=== PATIENT | male | born 1955 | race Caucasian/White ===

== ENCOUNTER → 2017-10-29 | Outpatient (CLI) | payer OTHER ==
[~2017-10-29] MED LIST: FLUT0.0529 INTNAS
[2017-10-29 17:19] LABS: ALBUMIN 4.1 gm/dl (3.4-5.0); ALT/SGPT 60 U/L (12-78); BLOOD UREA NITROGEN 18 mg/dl (7-18); CALCIUM 9.3 mg/dl (8.5-10.1); CARBON DIOXIDE 28 mmol/L (21-32); CREATININE 0.86 mg/dl (0.60-1.40); GLUCOSE 90 mg/dl (70-99); LIPASE 144 U/L (73-393); POTASSIUM 3.5 mmol/L (3.5-5.1); SODIUM 136 mmol/L (136-145)
[2017-10-29 17:22] LABS: ALKALINE PHOSPHATASE 74 U/L (45-117); AST/SGOT 43 U/L (15-37); TOTAL PROTEIN 7.3 gm/dl (6.4-8.2)
[2017-10-29 17:35] LABS: BASO % 0.2 %; BASO ABS # 0.01 K/uL (0-0.2); EOS % 2.8 %; EOS ABS # 0.17 K/uL (0-0.5); HEMATOCRIT 42.9 % (42-52); HEMOGLOBIN 15.2 g/dL (14.0-18.0); IG# 0.03 K/uL (0.00-0.02); LYMPH % 25.9 %; LYMPH ABS # 1.58 K/uL (1.2-3.4); MEAN CORPUSCULAR HGB CONC 35.4 g/dl (32-36); MEAN PLATELET VOLUME 9.6 fL (7.4-10.4); MONO ABS # 0.49 K/uL (0.11-0.59); NEUT % 62.6 %; NEUT ABS # 3.81 K/uL (1.4-6.5); PLATELET COUNT 216 K/uL (130-400); RED CELL DISTRIBUTION WIDTH CV 12.4 % (11.5-14.5); WHITE BLOOD COUNT 6.09 K/uL (4.8-10.8)
[2017-10-29 18:04] LABS: HEP C IGG 13 YRS+OLDER_RFLX NEG (NEG)
[2017-10-31 07:16] LABS: HEPATITIS A IGM TC 51813E NON-REACTIVE (NON-REACTIVE); HEPATITIS B CORE IGM TC51854R NON-REACTIVE (NON-REACTIVE)
== END | disposition home or self-care (01) ==
LOC: C.LAB1850 15:39
PROVIDERS: ATTEND Nurse Practitioner Family
DX: R10.9 Unspecified abdominal pain (principal)

== ENCOUNTER → 2017-11-04 | Outpatient (CLI) | payer OTHER ==
--- NOTE | 2017-11-04 09:15 | DIAGNOSTIC IMAGING REPORT ---
BILIARY ULTRASOUND CLINICAL HISTORY: R10.9 Abdominal [id number] COMPARISON STUDY: September 25, 2015 FINDINGS: The pancreas appears sonographically normal. The gallbladder appears sonographically normal. There was no ductal dilatation. The common bile duct measures 3 mm. There is no right-sided hydronephrosis. No focal hepatic masses were visualized. There was mild increased hepatic echogenicity. IMPRESSION: 1. Ultrasonographically normal gallbladder and pancreas 2. No ductal dilatation 3. Increased hepatic echogenicity, likely secondary to hepatic steatosis Electronically signed by: Maynor Garcia M.D. 11/04/2017 9:14 AM Dictated Date/Time: 11/04/2017 9:13 AM
== END | disposition home or self-care (01) ==
LOC: C.ULTR 08:40
PROVIDERS: ATTEND Nurse Practitioner Family
DX: R10.9 Unspecified abdominal pain (principal)

== ENCOUNTER → 2017-11-19 | Outpatient (CLI) | payer OTHER ==
[~2017-11-19] MED LIST changes: +SINCALIDE INJ 1.7 MCG in SODIUM CHLORIDE 0.9% 100ML 100 ML IV ONE
--- NOTE | 2017-11-19 13:39 | DIAGNOSTIC IMAGING REPORT ---
HEPATOBILIARY EF IMAGING CLINICAL HISTORY: 62 years-old Male presenting with R10.9 Abdominal pain. TECHNIQUE: Dynamic imaging of the gallbladder was initiated 65 minutes after administration of 5.50 mCi of technetium 99m Choletec. Imaging was obtained every 5 minutes over a span of 40 minutes. 1.7 mcg of sincalide was injected 5 minutes prior to the start of imaging. The gallbladder ejection fraction was calculated. COMPARISON: Ultrasound from 11/04/2017. FINDINGS: Hepatobiliary scan demonstrates normal radiotracer uptake by the liver and normal excretion into the common duct and gallbladder. Expected radiotracer activity within small bowel indicates an unobstructed common duct. The gallbladder subsequently demonstrates normal contraction with decreased radiotracer activity. Gallbladder ejection fraction measures 97%. Reference range: Unequivocally normal: Greater than 50% Unequivocally abnormal: Less than 35% IMPRESSION: 1. Normal gallbladder ejection fraction. No evidence of chronic cholecystitis. Electronically signed by: Harley Mullen M.D. 11/19/2017 1:38 PM Dictated Date/Time: 11/19/2017 1:37 PM
== END | disposition home or self-care (01) ==
LOC: C.NUCL 10:29
PROVIDERS: ATTEND Nurse Practitioner Family
DX: R10.9 Unspecified abdominal pain (principal)

== ENCOUNTER → 2017-11-25 | Outpatient (CLI) | payer OTHER ==
[~2017-11-25] MED LIST changes: -SINCALIDE INJ 1.7 MCG in SODIUM CHLORIDE 0.9% 100ML 100 ML IV ONE
== END | disposition home or self-care (01) ==
LOC: C.LAB1850 08:35
PROVIDERS: ATTEND Nurse Practitioner Family
DX: R39.9 Unspecified symptoms and signs involving the genitourinary system (principal)

== ENCOUNTER 2024-06-03 23:24 | Inpatient (IN) ==
--- NOTE | 2024-06-03 23:52 | Emergency Department Note ---
Impression & Plan Imbalance, Alcohol intoxication, Alcohol dependence, Cervical spinal stenosis ED Provider Note NAME: AYDEE LEIGH AGE: 68 SEX: M : 1955 ARRIVES VIA: Walk-In INFORMANT: Patient ED PROVIDER(S): Rene Lee MD CHIEF COMPLAINT: Imbalance, confusion, double vision PLAN: Disposition: Admit MEDICAL DECISION MAKING: The patient is a pleasant 68-year-old gentleman with a past medical history of paroxysmal atrial fibrillation not on anticoagulation, hypertension, sensorial neural hearing loss, cervical spinal stenosis, chronic neck pain and balance, fatty liver, BPH with LUTS who presents to the emergency department via walk-in accompanied by his children for evaluation of imbalance, double vision which occurred tonight prior to arrival in the setting of having several months of decline with headache, imbalance and changes in mental status. They report that the patient was worse today and had a fall and they are walking the state and going up the ramp which is not normal for the patient. Reportedly tonight the patient was feeling worse and so drove over to their house and had reported having double vision and dizziness. Patient reports that this is resolved at this time. Patient does admit that he does drink alcohol daily and describes intake as 2 gin and tonics. He describes the glass as "tall". He reports that he has stopped drinking for a week or so in the past year but admits he started to feel shaky. He is scheduled to see neurosurgery in the next couple of weeks at [facility] for his cervical spine stenosis for cervical spine MRI imaging from 05/09/24 demonstrated moderate multilevel intervertebral disc space narrowing and facet arthrosis resulting in associated central canal and neuroforaminal stenosis. There is description of flattening of the ventral thecal sac at the level of C3-C4. Patient denies any new urinary retention or loss of bowel control. On evaluation the patient is fatigued, somnolent appearing. He has subtle dysarthric speech and past-pointing bilaterally with ataxia lower extremities. EKG without overt acute ischemia. CXR negative for acute cardiopulmonary process per my personal preliminary review/interpretation. WBC and Platelets wnl. H/H similar to prior. Chemistry without metabolic acidosis. AST and ALT 108 and 67, respectively, similar to prior. FTs otherwise normal. High-sensitivity troponin 0.9, within normal limits. Lipase normal. TSH is pending. Medical alcohol was 372 at 2340 in the setting of patient report his last drink was earlier today. CT of the head demonstrates age-related changes as well as description of a newly noted small hypodense focus in the right pontine Ose[place] portion which may reflect low-grade ischemia of small vessel disease. Additional note of tiny bilateral frontal periventricular hyperdense foci related to small vessel disease. CTA of the head and neck demonstrates mild-moderate carotid artery stenosis. Given the patient's CT findings the patient and family agree with plan for admission for further assessment. Additionally, they agree that patient does need to address his alcohol dependence. At this time the patient does not exhibit any signs or symptoms of withdrawal. Patient was treated IV fluid duration and IV thiamine. Case was discussed with Dr. Polanco, [facility] hospitalist, who will evaluate the patient for admission. Further management per admitting team. Triage Nursing notes reviewed and agree them. Prior/external medical records reviewed Vital Signs: reviewed Differential diagnosis: Benign positional vertigo, dehydration, hypovolemia, anemia, tumor, infection, hypoglycemia, electrolyte abnormalities, cardiac sources, intracerebral event, toxicologic, neurologic, as well as other pathologies. ER treatment provided: See below. Diagnostics interpreted by me: ECG: Normal sinus rhythm, 62 bpm, no ectopy, no overt ST ovation or depression, QTc 438 QTC 78. Cardiac Monitoring: An order for continuous cardiac monitoring was placed and demonstrated Normal sinus rhythm, 62 bpm, no ectopy, Laboratory studies: See below Imaging studies: See below Consultation(s): Case was discussed with Dr. Polanco, [facility] hospitalist, who will evaluate the patient for admission. HPI: The patient is a pleasant 68-year-old gentleman with a past medical history of paroxysmal atrial fibrillation not on anticoagulation, hypertension, sensorial neural hearing loss, cervical spinal stenosis, chronic neck pain and balance, fatty liver, BPH with LUTS who presents to the emergency department via walk-in accompanied by his children for evaluation of imbalance, double vision which occurred tonight prior to arrival in the setting of having several months of decline with headache, imbalance and changes in mental status. They report that the patient was worse today and had a fall and they are walking the state and going up the ramp which is not normal for the patient. Reportedly tonight the patient was feeling worse and so drove over to their house and had reported having double vision and dizziness. Patient reports that this is resolved at this time. Patient does admit that he does drink alcohol daily and describes intake as 2 gin and tonics. He describes the glass as "tall". He reports that he has stopped drinking for a week or so in the past year but admits he started to feel shaky. He is scheduled to see neurosurgery in the next couple of weeks at [facility] for his cervical spine stenosis for cervical spine MRI imaging from 05/09/24 demonstrated moderate multilevel intervertebral disc space narrowing and facet arthrosis resulting in associated central canal and neuroforaminal stenosis. There is description of flattening of the ventral thecal sac at the level of C3-C4. Patient denies any new urinary retention or loss of bowel control. ROS: See above HPI for pertinent positives & negatives. A total of 10 systems reviewed and were otherwise negative. VITALS:See Below PHYSICAL EXAMINATION: GENERAL: Awake, alert, somnolent-appearing, in no distress HENT: Normocephalic, atraumatic. Oropharynx with dry mucous membranes and otherwise unremarkable. EYES: Normal conjunctiva. Sclera non-icteric. Mild bilateral horizontal nystagmus. NECK: Supple. No nuchal rigidity. FROM. No JVD. RESPIRATORY: Clear to auscultation. CARDIAC: Regular rate, normal rhythm. Extremities warm and well perfused. Pulses equal. ABDOMEN: Soft, non-distended. No tenderness to palpation. No rebound or guarding. No masses. MUSCULOSKELETAL: Chest examination reveals no tenderness. The back is symmetrical on inspection without obvious abnormality. There is no CVA tenderness to palpation. No joint edema. LOWER EXTREMITIES: Calves are equal size bilaterally and non-tender. No edema. No discoloration. NEURO: Subtle dysarthric speech and past-pointing bilaterally with ataxia lower extremities. SKIN: No rash or jaundice noted. 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 (Chronic) Hematuria Dysphagia Chronic anticoagulation Paroxysmal atrial fibrillation Abnormal TSH Left asymmetrical SNHL SNHL (sensorineural hearing loss) Hypertension (Chronic) Decreased hearing Dysfunction of eustachian tube Elevated blood pressure reading without diagnosis of hypertension Fatty infiltration of liver Incomplete emptying of bladder Left asymmetrical SNHL Prostate hyperplasia with urinary obstruction Medical History BPH (benign prostatic hyperplasia) SNHL (sensorineural hearing loss) Seasonal allergies History of postoperative nausea and vomiting fentanyl caused nausea, no vomiting Hx of urethral stricture History of COVID-19 (09/2022) no hosp; resolved Dysphagia HTN (hypertension) Fatty liver Hx of gout Paroxysmal atrial fibrillation states was caused by gout medication, no issues since discontinuing that medication (2021) follows w/ Dr Robert Expressive aphasia Transient ischemic attack pt denies being aware of this Surgical History S/P placement of nerve stimulator bladder stimulator implanted and removed per pt Hx of colonoscopy Hx of cystoscopy (2022) multiple procedures for urethral stricture History of bladder surgery S/P TURP (03/2014) History of inguinal hernia repair (09/17/14) left Family History Unknown Diabetes Mother Hypertension Father Hypertension Other specified hearing loss, unspecified ear Sister Asthma Other No family history of adverse response to anesthesia No family history of bleeding disorder Denies family history of Ovarian cancer Prostate cancer Myocardial infarction Breast cancer Colorectal cancer Social History Smoking Status: Former smoker Tobacco Type: Cigarettes Age Started Using Tobacco: 17; Age Quit Using Tobacco: 34; packs per day: 1; Cigarettes Per Day: 3; Smoking End Date: 1989; Second Hand Exposure: No; Do You Dip or Chew Tobacco: No; Hx Alcohol Use: Yes Alcohol type: hard liquor Alcohol Intake Frequency: 4 or More x per/Week Alcohol Intake Frequency Comment: 1 or 2 gin and tonics daily Hx Substance Use: No Preferred Language: [place] Citizen Communication Ability: Effective Visual Impairment: No Limitations Hearing Ability: Use of Hearing Aid Production Manager Required: No Beliefs That Will Affect Care: None marital status: Current Living Situation: Alone Current Living Situation Comment: lives in [place] current occupational status: retired Other Information That Helps Us Care for You: No Feels Safe at Home: Yes Safety Concerns: Feels Safe At This Time Childhood Exposure to Second-Hand Smoke: Yes Diet: regular Dental Care, Regularly: Yes Physical Activity Frequency: Daily Seatbelt Use: always Sunscreen Use: Yes Assistive Devices: Glasses and Hearing Aid - Left Allergies Allergies Allergy/AdvReac Type Severity Reaction Status Date / Time Penicillins Allergy Unknown ANAPHYLACTIC Verified 05/18/24 08:43 RESPONSE Home Meds Home Medications Medication Instructions Recorded Confirmed biotin 1 mg tablet 1 mg PO DAILY 04/07/24 06/04/24 Previous Rx's Medication Instructions Recorded tamsulosin 0.4 mg capsule 0.4 mg PO DAILY #90 caps 03/23/22 sildenafil 100 mg tablet 100 mg PO DAILY PRN sexual 11/29/23 activity #8 tabs metoprolol succinate 50 mg See Rx Instructions .Route 04/14/24 tablet,extended release 24 hr .COMPLEX #90 tabs duloxetine 30 mg capsule,delayed 30 mg PO DAILY #90 caps 05/18/24 release (Cymbalta) Results & Data (ED) Vital Signs Vital Signs - 24 hr 06/03/24 23:28 06/03/24 23:35 06/03/24 23:36 Temperature 36.2 C L Temperature Source Temporal Artery Scan Pulse Rate 61 66 Pulse Rate [Apical] Pulse Rate from SpO2 Sensor Respiratory Rate 16 Respiratory Effort / Characteristics Non-Labored Spontaneous Respiratory Depth Normal Respiratory Pattern Regular Blood Pressure 105/71 97/64 L Blood Pressure [Right Arm] Blood Pressure Mean 82 75 Blood Pressure Mean [Right Arm] Blood Pressure Position Sitting Pulse Oximetry 97 Oxygen Delivery Method Room Air Sepsis Recent Fever Within 48 Hours No Sepsis New/Unexplained Change in Mental Status N/A Sepsis Action Taken by Nursing No Action Required 06/03/24 23:39 06/03/24 23:40 06/03/24 23:42 Temperature Temperature Source Pulse Rate 64 63 Pulse Rate [Apical] 62 Pulse Rate from SpO2 Sensor 64 Respiratory Rate 14 20 23 Respiratory Effort / Characteristics Non-Labored Spontaneous Respiratory Depth Normal Respiratory Pattern Regular Blood Pressure Blood Pressure [Right Arm] 97/64 L Blood Pressure Mean Blood Pressure Mean [Right Arm] 75 Blood Pressure Position Pulse Oximetry 99 98 Oxygen Delivery Method Room Air Sepsis Recent Fever Within 48 Hours Sepsis New/Unexplained Change in Mental Status Sepsis Action Taken by Nursing 06/03/24 23:57 06/04/24 00:00 06/04/24 00:09 Temperature Temperature Source Pulse Rate 65 64 Pulse Rate [Apical] Pulse Rate from SpO2 Sensor 64 Respiratory Rate 13 Respiratory Effort / Characteristics Respiratory Depth Respiratory Pattern Blood Pressure 110/64 Blood Pressure [Right Arm] Blood Pressure Mean 69 Blood Pressure Mean [Right Arm] Blood Pressure Position Pulse Oximetry 97 96 Oxygen Delivery Method Room Air Sepsis Recent Fever Within 48 Hours Sepsis New/Unexplained Change in Mental Status Sepsis Action Taken by Nursing 06/04/24 00:21 06/04/24 00:30 06/04/24 01:00 EST Temperature Temperature Source Pulse Rate 68 66 Pulse Rate [Apical] Pulse Rate from SpO2 Sensor 68 66 Respiratory Rate 20 17 Respiratory Effort / Characteristics Respiratory Depth Respiratory Pattern Blood Pressure 108/64 Blood Pressure [Right Arm] Blood Pressure Mean 80 Blood Pressure Mean [Right Arm] Blood Pressure Position Pulse Oximetry 97 95 Oxygen Delivery Method Sepsis Recent Fever Within 48 Hours Sepsis New/Unexplained Change in Mental Status Sepsis Action Taken by Nursing 06/04/24 01:00 EST 06/04/24 01:03 EST 06/04/24 01:12 EST Temperature Temperature Source Pulse Rate 68 62 Pulse Rate [Apical] Pulse Rate from SpO2 Sensor 72 62 Respiratory Rate 22 15 Respiratory Effort / Characteristics Respiratory Depth Respiratory Pattern Blood Pressure 108/64 Blood Pressure [Right Arm] Blood Pressure Mean 80 Blood Pressure Mean [Right Arm] Blood Pressure Position Pulse Oximetry 94 93 Oxygen Delivery Method Sepsis Recent Fever Within 48 Hours Sepsis New/Unexplained Change in Mental Status Sepsis Action Taken by Nursing 06/04/24 01:21 EST 06/04/24 01:23 EST 06/04/24 01:30 EST Temperature Temperature Source Pulse Rate 66 66 Pulse Rate [Apical] 61 Pulse Rate from SpO2 Sensor 66 Respiratory Rate 15 20 Respiratory Effort / Characteristics Non-Labored Spontaneous Respiratory Depth Normal Respiratory Pattern Regular Blood Pressure Blood Pressure [Right Arm] 119/74 Blood Pressure Mean Blood Pressure Mean [Right Arm] 89 Blood Pressure Position Pulse Oximetry 94 92 Oxygen Delivery Method Room Air Sepsis Recent Fever Within 48 Hours Sepsis New/Unexplained Change in Mental Status Sepsis Action Taken by Nursing 06/04/24 01:30 EST 06/04/24 02:00 06/04/24 02:15 Temperature Temperature Source Pulse Rate 61 66 Pulse Rate [Apical] Pulse Rate from SpO2 Sensor 61 67 Respiratory Rate 16 14 Respiratory Effort / Characteristics Respiratory Depth Respiratory Pattern Blood Pressure 98/62 L Blood Pressure [Right Arm] Blood Pressure Mean 70 Blood Pressure Mean [Right Arm] Blood Pressure Position Pulse Oximetry 95 Oxygen Delivery Method Sepsis Recent Fever Within 48 Hours Sepsis New/Unexplained Change in Mental Status Sepsis Action Taken by Nursing 06/04/24 02:27 06/04/24 02:30 06/04/24 02:30 Temperature Temperature Source Pulse Rate 60 59 L Pulse Rate [Apical] Pulse Rate from SpO2 Sensor 60 59 L Respiratory Rate 16 15 Respiratory Effort / Characteristics Respiratory Depth Respiratory Pattern Blood Pressure 99/71 L Blood Pressure [Right Arm] Blood Pressure Mean 79 Blood Pressure Mean [Right Arm] Blood Pressure Position Pulse Oximetry 93 95 Oxygen Delivery Method Sepsis Recent Fever Within 48 Hours Sepsis New/Unexplained Change in Mental Status Sepsis Action Taken by Nursing 06/04/24 02:30 06/04/24 02:34 06/04/24 03:30 Temperature Temperature Source Pulse Rate 62 67 Pulse Rate [Apical] Pulse Rate from SpO2 Sensor 65 Respiratory Rate 15 Respiratory Effort / Characteristics Respiratory Depth Respiratory Pattern Blood Pressure 99/71 L 124/74 Blood Pressure [Right Arm] Blood Pressure Mean 79 92 Blood Pressure Mean [Right Arm] Blood Pressure Position Pulse Oximetry 96 Oxygen Delivery Method Room Air Sepsis Recent Fever Within 48 Hours Sepsis New/Unexplained Change in Mental Status Sepsis Action Taken by Nursing Laboratory Data 06/03/24 23:42 06/03/24 23:42 Lab Results 06/03/24 Range/Units 23:42 WBC 6.13 (4.8-10.8) K/ul RBC 3.55 L (4.70-6.10) M/uL Hgb 12.8 L (14.0-18.0) g/dl Hct 37.5 L (42.0-52.0) % MCV 105.6 H (80.0-100.0) fL MCH 36.1 H (25.0-34.0) pg MCHC 34.1 (32.0-36.0) g/dL RDW Std Deviation 48.8 H (36.4-46.3) fL RDW Coeff of Oswald 12.6 (11.5-14.5) % Plt Count 216 (130-400) K/uL MPV 9.8 (9.4-12.4) fL Immature Gran % (Auto) 0.8 % Neut % (Auto) 55.5 % Lymph % (Auto) 27.4 % Pettis % (Auto) 12.2 % Eos % (Auto) 3.4 % Baso % (Auto) 0.7 % Neut # (Auto) 3.40 (1.40-6.50) K/uL Lymph # (Auto) 1.68 (1.20-3.40) K/uL Pettis # (Auto) 0.75 H (0.11-0.59) K/uL Eos # (Auto) 0.21 (0.00-0.50) K/uL Baso # (Auto) 0.04 (0.00-0.20) K/uL Immature Gran # (Auto) 0.05 (0.01-0.20) K/uL PT 11.3 (9.0-12.0) Seconds INR 1.0 (0.9-1.1) Sodium 139 (136-145) mmol/L Potassium 4.2 (3.5-5.1) mmol/L Chloride 103 (98-107) mmol/L Carbon Dioxide 28 (21-32) mmol/L Anion Gap 8 (3-11) BUN 15 (6-23) mg/dl Creatinine 0.96 (0.6-1.4) mg/dl Est Cr Clr Drug Dosing 78.8 ml/min eGFR 86.10 BUN/Creatinine Ratio 15.6 (10-20) Glucose 110 H (70-99(Fasting)) mg/dl Calcium 9.4 (8.6-10.3) mg/dl Phosphorus 4.3 (2.5-4.9) mg/dl Magnesium 1.8 (1.7-2.4) mg/dl Total Bilirubin 0.6 (0.2-1.0) mg/dl Direct Bilirubin 0.2 (0-0.2) mg/dl AST 108 H (13-39) U/L ALT 67 H (7-52) U/L Alkaline Phosphatase 113 H (34-104) U/L Troponin I High Sens 7.9 (0-20) pg/ml Total Protein 7.4 (6.0-8.3) gm/dl Albumin 4.3 (3.4-5.0) gm/dl Globulin 3.1 (2.5-4.0) gm/dl Albumin/Globulin Ratio 1.4 (0.9-2) Lipase 43 (11-82) U/L TSH 6.176 H (0.300-4.500) uIu/ml Free T4 0.99 (0.61-1.60) ng/dl Ethyl Alcohol mg/dL 372.7 H (<10.0) mg/dl Administered Medications Duloxetine HCl (Duloxetine Hcl 30 Mg Cap) 30 mg PO DAILY ALEXEI Stop: 07/04/24 08:59 Last Admin: 06/04/24 08:11 Dose: 30 mg Documented By: Tamsulosin HCl (Tamsulosin Hcl 0.4 Mg Cap) 0.4 mg PO DAILY ALEXEI Stop: 07/04/24 08:59 Last Admin: 06/04/24 08:11 Dose: 0.4 mg Documented By: Discontinued Medications Aspirin (Aspirin 81 Mg Chew) 324 mg PO NOW STA Stop: 06/04/24 04:43 Last Admin: 06/04/24 05:43 Dose: 324 mg Documented By: LIDYA Gabapentin (Gabapentin 600 Mg Tab) 1,200 mg PO NOW ONE Stop: 06/04/24 05:16 Last Admin: 06/04/24 05:45 Dose: 1,200 mg Documented By: LIDYA Gabapentin (Gabapentin 600 Mg Tab) 600 mg PO Q6H ALEXEI Stop: 06/04/24 18:01 Last Admin: 06/04/24 17:11 Dose: 600 mg Documented By: Admin: 06/04/24 12:19 Dose: 600 mg Documented By: Sodium Chloride (Nss) 1,000 mls @ 999 mls/hr IV .Q1H1M ONE Stop: 06/04/24 00:47 Last Infusion: 06/04/24 01:07 EDT Dose: Infused Documented By: Admin: 06/04/24 00:06 Dose: 999 mls/hr Documented By: ADELITA Thiamine HCl 500 mg/ Sodium (Chloride) 55 mls @ 210 mls/hr IV NOW STA Stop: 06/04/24 00:02 Last Infusion: 06/04/24 00:22 Dose: Infused Documented By: Admin: 06/04/24 00:05 Dose: 210 mls/hr Documented By: ADELITA Folic Acid 1 mg/ Syringe 10 mls @ 5 mls/min IV NOW STA Stop: 06/04/24 03:55 Last Admin: 06/04/24 05:43 Dose: 5 mls/min Documented By: LIDYA Ioversol (Optiray 320 125ml) 119 ml IV ONCE ONE Stop: 06/04/24 00:55 Last Admin: 06/04/24 00:54 Dose: 119 ml Documented By: [facility] Imaging Data Radiologist's Impression: Chest X-Ray 06/03/24 23:47 EXAM: XR chest 1V portable CLINICAL HISTORY: CHEST PAIN WEAKNESS F TECHNIQUE: An X-ray image of the chest is obtained in AP projection. COMPARISON: No prior studies are available for comparison. FINDINGS: Pulmonary Parenchyma: No consolidation, pneumothorax, or pleural effusion. Ill-defined veiling at the left costophrenic angle Heart and Mediastinum: Borderline cardiomegaly. Mediastinal and hilar shadows normal platelet Bony Thorax: Thoracic spondylotic changes with bilateral acromioclavicular joint degenerative changes. Soft Tissues: Soft tissues overlying the chest wall are unremarkable. IMPRESSION: 1. No consolidation, pneumothorax, or pleural effusion. 2. Mild cardiomegaly. 3. Ill-defined veiling at the left costophrenic angle may represent the summation of shadows however, the possibility of small left pleural effusion cannot be excluded. Electronically signed by Zac Erazo 06-04-2024 01:[address] 06/03/24 23:51 EXAM: CT head/brain wo con CLINICAL HISTORY: neck pain, double vision, ataxia kf TECHNIQUE: Axial non-contrast CT scan of the brain was performed from the skull base to the high parietal region with coronal and sagittal reformats. One of the following dose reduction techniques were utilized for this exam: Automated exposure control, adjustment of the mA and/or kV according to patient size, use of iterative reconstruction. COMPARISON: with the prior study dated 06/13/2023. FINDINGS: Brain Parenchyma: Mild age-related cerebral involutional changes are noted. small right pontine hemiportion hypodense focus is seen, no edema of mass effect is noted. Tiny bilateral frotnal raúl ventricular hypodense foci related to small vessel disease. Normal attenuation of the cerebral hemispheres, cerebellum, and brainstem. No evidence of acute infarct, hemorrhage, or mass effect. No abnormal areas of hypo- or hyperattenuation. Ventricular System: Ventricles are slightly dilated. No evidence of hydrocephalus or ventricular enlargement. Subarachnoid Spaces: wide sulci and cisterns. No evidence of subarachnoid hemorrhage or extra-axial fluid collections. Cerebellum and Brainstem: Normal size and signal. No masses, lesions, or areas of abnormal signal. Orbits: Normal appearance of the globes, optic nerves, and extraocular muscles. No evidence of orbital masses or abnormal signals. Sinuses: Clear paranasal sinuses. No evidence of sinusitis or mucosal thickening. Mastoid Air Cells: Clear mastoid air cells. No evidence of mastoiditis. Skull and Meninges: Normal skull morphology. IMPRESSION: 1. Mild age-related cerebral involutional changes. (Stable). 2. Newly noted small hypodense focus in the right pontine hemiportion, likely low-grade ischemia of small vessel disease. 3. Still noted Tiny bilateral frontal raúl-ventricular hyperdense foci related to small vessel disease. 4. No obvious recent ischaemic or hemorrhagic foci, further MRI assessment is advised if clinically warranted. Electronically signed by Zac Erazo 06-04-2024 01:32 AM Head CTA 06/03/24 23:51 EXAM: CT angio head w con CLINICAL HISTORY: neck pain, double vision, ataxia injected with 119 cc''s optiray 320 kf TECHNIQUE: CT angiography of the head was performed following the intravenous administration of 119ml of Opitray-320mg/ml iodinated contrast material. Contiguous axial images were obtained from the base of the skull to the vertex. Coronal and sagittal reformatted images were also reviewed. One of these 3D techniques was utilized: Maximum Intensity Pixel (MIP), 3D Reconstructed Images, Volume Rendered Images, Surface Shaded Rendering. One of these 3D techniques was utilized: Maximum Intensity Pixel (MIP), 3D Reconstructed Images, Volume Rendered Images, Surface Shaded Rendering. COMPARISON: Comparison is made with the prior CT angiography dated 08/23/2018. FINDINGS: The right ICA cavernous postion shows several small calcified atheromatous plaques with no signifincat stenosis reaching about 30 %. The left ICA cavernous postion shows several small calcified atheromatous plaques with no signifincat stenosis reaching about 55%. Intracranial Arteries: The intracranial arteries, including the anterior cerebral arteries, middle cerebral arteries, posterior cerebral arteries, basilar artery, and vertebral arteries, are all patent without evidence of significant stenosis, aneurysm, or dissection. There is no evidence of vascular malformations. Fol[place] of [place]: The Fol[place] of [place] is intact with no anatomical variations or abnormalities noted. All segments are well-visualized and normal in appearance. Venous System: The visualized portions of the venous system, including the dural venous sinuses, are patent with no evidence of thrombosis. Brain Parenchyma: The brain parenchyma shows no evidence of acute infarction, hemorrhage, or mass effect. The ventricles and sulci are normal in size and configuration. Bones: The bony structures of the skull are intact without evidence of fracture or destructive lesions. Soft Tissues: The visualized soft tissues of the head are unremarkable. Additional Findings: No other significant findings are noted. IMPRESSION: OBX.5.1OBX.5.1.11. Evidence of bilateral ICA cavernous portions, calcified atheromatous plaques with stenosis reaching about 30% in the right side /OBX.5.1.1OBX.5.1.2 55 % in the left side./OBX.5.1.2/OBX.5.[address] angiography head is unremarkable. Electronically signed by Zac Erazo 06-04-2024 02:27 AM Neck CTA 06/03/24 23:51 EXAM: CT angio neck with con CLINICAL HISTORY: neck pain, double vision, ataxia injected with 119cc''s optiray 320 kf TECHNIQUE: CT angiography of the neck was performed following the intravenous administration of 119ml of Opitray-300mg/ml of iodinated contrast material. Axial images were obtained from the aortic arch to the vertex. Coronal and sagittal reformatted images were also reviewed. One of the following dose reduction techniques was utilized for this exam. Automated exposure control, adjustment of the mA and/or kV according to patient size, and use of iterative reconstruction. One of these 3D techniques was utilized: Maximum Intensity Pixel (MIP), 3D Reconstructed Images, Volume Rendered Images, Surface Shaded Rendering. COMPARISON: With the prior study dated 05/21/2022. FINDINGS: OBX.5.1OBX.5.1.1The right carotid bulb shows concentric atherosclerotic calcified plaque is seen causin about 54 % stenosis./OBX.5.1.1OBX.5.1.2 is see extending to the proximal segment of the right ICA causing 35 % stenosis of its lumen./OBX.5.1.2/OBX.5.1 The left carotic bubl shows another concentric stenosis by calcified circumferential atheromatous plaque causing about 45 % stenosis with a small extension to the left ICA proximal segment causing 25 % stenosis. Diffuse aortic atherosclerotic changes are noted. Carotid Arteries: The remaining portions of the common, internal, and external carotid arteries are patent bilaterally with no evidence of significant stenosis, aneurysm, or dissection. There is no evidence of atherosclerotic plaque causing significant luminal narrowing. Vertebral Arteries: The vertebral arteries are patent bilaterally with no evidence of significant stenosis, aneurysm, or dissection. Thyroid Gland: The thyroid gland is normal in size and appearance with no focal lesions. Lymph Nodes: There is no evidence of significant lymphadenopathy in the neck. Soft Tissues: The soft tissues of the neck are unremarkable with no evidence of masses or abnormal collections. Additional Findings: No other significant findings are noted. IMPRESSION: Evidence of Bilateral carotid bulbs and proximal ICA calcified atheromatous plaques with stenosis criteria as described above(54% right bulb, 35% right ICA, 45% left carotid bulb and 25 % left ICA ). Electronically signed by Zac Erazo 06-04-2024 02:33 AM Discharge Plan Visit Data Chief Complaint: Neck Injury/Pain Stated Complaint: BALLANCE ISSUES, NECK PAIN ED Provider: Rene Lee Discharge Problem: Imbalance, Alcohol intoxication, Alcohol dependence, Cervical spinal stenosis Patient Disposition: Admitted As Inpatient Discharge Instructions Interventions: ED Discharge Assessment Last Done: 06/04/24 04:25 Discharge Problem: Alcohol intoxication Qualifiers: Complication of substance-induced condition: with unspecified complication Q ualified Code(s): F10.929 - Alcohol use, unspecified with intoxication, unspecified Alcohol dependence Qualifiers: Substance use status: unspecified alcohol-induced disorder Qualified Code(s): F 10.29 - Alcohol dependence with unspecified alcohol-induced disorder
[2024-06-04 00:05] LABS: Basophils # (auto) 0.04 K/uL (0.00-0.20); Basophils % (auto) 0.7 %; Eosinophils # (auto) 0.21 K/uL (0.00-0.50); Eosinophils % (auto) 3.4 %; Hematocrit (blood only) 37.5 % (42.0-52.0); Hemoglobin 12.8 g/dl (14.0-18.0); Immature Granulocytes # (auto) 0.05 K/uL (0.01-0.20); Immature Granulocytes % (auto) 0.8 %; Lymphocytes # (auto) 1.68 K/uL (1.20-3.40); Lymphocytes % (auto) 27.4 %; Mean Corpuscular Hemoglobin 36.1 pg (25.0-34.0); Mean Corpuscular Hgb Conc 34.1 g/dL (32.0-36.0); Mean Corpuscular Volume 105.6 fL (80.0-100.0); Mean Platelet Volume 9.8 fL (9.4-12.4); Monocytes # (auto) 0.75 K/uL (0.11-0.59); Monocytes % (auto) 12.2 %; Neutrophils % (auto) 55.5 %; Platelet Count 216 K/uL (130-400); RDW Coefficient of Variation 12.6 % (11.5-14.5); RDW Standard Deviation 48.8 fL (36.4-46.3); Red Blood Count 3.55 M/uL (4.70-6.10); White Blood Count 6.13 K/ul (4.8-10.8)
[2024-06-04] MEDS: THIAMINE HCL 500 MG in SODIUM CHLORIDE 0.9% 50 ML IV STA (00:05)
[2024-06-04] MEDS: SODIUM CHLORIDE 0.9% 1,000 ML IV ONE (00:06)
[2024-06-04 00:17] LABS: Prothrombin Time 11.3 Seconds (9.0-12.0)
[2024-06-04 00:20] LABS: Albumin Level 4.3 gm/dl (3.4-5.0); Bilirubin Direct 0.2 mg/dl (0-0.2); Bilirubin,Total 0.6 mg/dl (0.2-1.0); Calcium 9.4 mg/dl (8.6-10.3); Magnesium 1.8 mg/dl (1.7-2.4); Potassium 4.2 mmol/L (3.5-5.1)
[2024-06-04 00:26] LABS: Albumin Globulin Ratio 1.4 (0.9-2); BUN Creatinine Ratio 15.6 (10-20); Creatinine Clr Calc Pharmacy 78.8 ml/min; Globulin 3.1 gm/dl (2.5-4.0); Phosphorus 4.3 mg/dl (2.5-4.9); Total Protein 7.4 gm/dl (6.0-8.3)
[2024-06-04 00:30] LABS: Troponin I High Sensitivity 7.9 pg/ml (0-20)
[2024-06-04 00:40] LABS: Thyroid Stimulating Hormone 6.176 uIu/ml (0.300-4.500)
[2024-06-04] MEDS: OPTIRAY 320 125ml IV ONE (00:54)
[2024-06-04 01:18] LABS: T4 Free Thyroxine 0.99 ng/dl (0.61-1.60)
--- NOTE | 2024-06-04 01:33 | CT Scan Report ---
EXAM: CT head/brain wo con CLINICAL HISTORY: neck pain, double vision, ataxia kf TECHNIQUE: Axial non-contrast CT scan of the brain was performed from the skull base to the high parietal region with coronal and sagittal reformats. One of the following dose reduction techniques were utilized for this exam: Automated exposure control, adjustment of the mA and/or kV according to patient size, use of iterative reconstruction. COMPARISON: with the prior study dated 06/13/2023. FINDINGS: Brain Parenchyma: Mild age-related cerebral involutional changes are noted. small right pontine hemiportion hypodense focus is seen, no edema of mass effect is noted. Tiny bilateral frotnal raúl ventricular hypodense foci related to small vessel disease. Normal attenuation of the cerebral hemispheres, cerebellum, and brainstem. No evidence of acute infarct, hemorrhage, or mass effect. No abnormal areas of hypo- or hyperattenuation. Ventricular System: Ventricles are slightly dilated. No evidence of hydrocephalus or ventricular enlargement. Subarachnoid Spaces: wide sulci and cisterns. No evidence of subarachnoid hemorrhage or extra-axial fluid collections. Cerebellum and Brainstem: Normal size and signal. No masses, lesions, or areas of abnormal signal. Orbits: Normal appearance of the globes, optic nerves, and extraocular muscles. No evidence of orbital masses or abnormal signals. Sinuses: Clear paranasal sinuses. No evidence of sinusitis or mucosal thickening. Mastoid Air Cells: Clear mastoid air cells. No evidence of mastoiditis. Skull and Meninges: Normal skull morphology. IMPRESSION: 1. Mild age-related cerebral involutional changes. (Stable). 2. Newly noted small hypodense focus in the right pontine hemiportion, likely low-grade ischemia of small vessel disease. 3. Still noted Tiny bilateral frontal raúl-ventricular hyperdense foci related to small vessel disease. 4. No obvious recent ischaemic or hemorrhagic foci, further MRI assessment is advised if clinically warranted. Electronically signed by Zac Erazo 06-04-2024 01:32 AM
--- NOTE | 2024-06-04 01:57 | XRay Report ---
EXAM: XR chest 1V portable CLINICAL HISTORY: CHEST PAIN WEAKNESS JMF TECHNIQUE: An X-ray image of the chest is obtained in AP projection. COMPARISON: No prior studies are available for comparison. FINDINGS: Pulmonary Parenchyma: No consolidation, pneumothorax, or pleural effusion. Ill-defined veiling at the left costophrenic angle Heart and Mediastinum: Borderline cardiomegaly. Mediastinal and hilar shadows normal platelet Bony Thorax: Thoracic spondylotic changes with bilateral acromioclavicular joint degenerative changes. Soft Tissues: Soft tissues overlying the chest wall are unremarkable. IMPRESSION: 1. No consolidation, pneumothorax, or pleural effusion. 2. Mild cardiomegaly. 3. Ill-defined veiling at the left costophrenic angle may represent the summation of shadows however, the possibility of small left pleural effusion cannot be excluded. Electronically signed by Zca Erazo 06-04-2024 01:56 AM
--- NOTE | 2024-06-04 02:28 | CT Scan Report ---
EXAM: CT angio head w con CLINICAL HISTORY: neck pain, double vision, ataxia injected with 119 cc''s optiray 320 kf TECHNIQUE: CT angiography of the head was performed following the intravenous administration of 119ml of Opitray-320mg/ml iodinated contrast material. Contiguous axial images were obtained from the base of the skull to the vertex. Coronal and sagittal reformatted images were also reviewed. One of these 3D techniques was utilized: Maximum Intensity Pixel (MIP), 3D Reconstructed Images, Volume Rendered Images, Surface Shaded Rendering. One of these 3D techniques was utilized: Maximum Intensity Pixel (MIP), 3D Reconstructed Images, Volume Rendered Images, Surface Shaded Rendering. COMPARISON: Comparison is made with the prior CT angiography dated 08/23/2018. FINDINGS: The right ICA cavernous postion shows several small calcified atheromatous plaques with no signifincat stenosis reaching about 30 %. The left ICA cavernous postion shows several small calcified atheromatous plaques with no signifincat stenosis reaching about 55%. Intracranial Arteries: The intracranial arteries, including the anterior cerebral arteries, middle cerebral arteries, posterior cerebral arteries, basilar artery, and vertebral arteries, are all patent without evidence of significant stenosis, aneurysm, or dissection. There is no evidence of vascular malformations. [place]: The [place] is intact with no anatomical variations or abnormalities noted. All segments are well-visualized and normal in appearance. Venous System: The visualized portions of the venous system, including the dural venous sinuses, are patent with no evidence of thrombosis. Brain Parenchyma: The brain parenchyma shows no evidence of acute infarction, hemorrhage, or mass effect. The ventricles and sulci are normal in size and configuration. Bones: The bony structures of the skull are intact without evidence of fracture or destructive lesions. Soft Tissues: The visualized soft tissues of the head are unremarkable. Additional Findings: No other significant findings are noted. IMPRESSION: OBX.5.1OBX.5.1.11. Evidence of bilateral ICA cavernous portions, calcified atheromatous plaques with stenosis reaching about 30% in the right side /OBX.5.1.1OBX.5.1.2 55 % in the left side./OBX.5.1.2/OBX.5.[address] angiography head is unremarkable. Electronically signed by Zac Erazo 06-04-2024 02:27 AM
--- NOTE | 2024-06-04 02:34 | CT Scan Report ---
EXAM: CT angio neck with con CLINICAL HISTORY: neck pain, double vision, ataxia injected with 119cc''s optiray 320 kf TECHNIQUE: CT angiography of the neck was performed following the intravenous administration of 119ml of Opitray-300mg/ml of iodinated contrast material. Axial images were obtained from the aortic arch to the vertex. Coronal and sagittal reformatted images were also reviewed. One of the following dose reduction techniques was utilized for this exam. Automated exposure control, adjustment of the mA and/or kV according to patient size, and use of iterative reconstruction. One of these 3D techniques was utilized: Maximum Intensity Pixel (MIP), 3D Reconstructed Images, Volume Rendered Images, Surface Shaded Rendering. COMPARISON: With the prior study dated 05/21/2022. FINDINGS: OBX.5.1OBX.5.1.1The right carotid bulb shows concentric atherosclerotic calcified plaque is seen causin about 54 % stenosis./OBX.5.1.1OBX.5.1.2 is see extending to the proximal segment of the right ICA causing 35 % stenosis of its lumen./OBX.5.1.2/OBX.5.1 The left carotic bubl shows another concentric stenosis by calcified circumferential atheromatous plaque causing about 45 % stenosis with a small extension to the left ICA proximal segment causing 25 % stenosis. Diffuse aortic atherosclerotic changes are noted. Carotid Arteries: The remaining portions of the common, internal, and external carotid arteries are patent bilaterally with no evidence of significant stenosis, aneurysm, or dissection. There is no evidence of atherosclerotic plaque causing significant luminal narrowing. Vertebral Arteries: The vertebral arteries are patent bilaterally with no evidence of significant stenosis, aneurysm, or dissection. Thyroid Gland: The thyroid gland is normal in size and appearance with no focal lesions. Lymph Nodes: There is no evidence of significant lymphadenopathy in the neck. Soft Tissues: The soft tissues of the neck are unremarkable with no evidence of masses or abnormal collections. Additional Findings: No other significant findings are noted. IMPRESSION: Evidence of Bilateral carotid bulbs and proximal ICA calcified atheromatous plaques with stenosis criteria as described above(54% right bulb, 35% right ICA, 45% left carotid bulb and 25 % left ICA ). Electronically signed by Zac Erazo 06-04-2024 02:33 AM
[2024-06-04] MEDS ORDERED: FOLIC ACID 5 MG/ML VIAL IV STA (03:50)
--- NOTE | 2024-06-04 03:53 | History & Physical Report ---
Date of Service June 04, 2024 Assessment & Plan (1) Abnormal CT scan of head: (2) Carotid stenosis, bilateral: (3) Diplopia: (4) Imbalance: (5) Alcohol intoxication: (6) Cervical (neck) region somatic dysfunction: (7) Cervical disc disorder at C5-C6 level with myelopathy: (8) Paroxysmal atrial fibrillation: (9) Hypertension: (10) Fatty infiltration of liver: (11) Prostate hyperplasia with urinary obstruction: (12) Fatty liver: Plan Confusion/progressive weakness/imbalance/diplopia/abnormal CT scan of head/carotid stenosis- The patient will be admitted to telemetry for cardiac rhythm monitoring and a 2- D echocardiogram with Dopplers. CT scan of head showed a newly noted small hypodense focus in the right pontine [place] portion, likely low-grade ischemia of small vessel disease. Tiny bilateral frontal periventricular hyperdense foci/small vessel disease. CTA of head bilateral ICA cavernous stenosis, 30% on the right side and 55% on the left side CTA of neck, SHANNON stenosis 35%, LICA stenosis 45% Ordering MRI brain without contrast for further assessment No focal neurologic deficits noted on examination Consult neurology Cervical spine stenosis multilevel- C5-C6 with myelopathy Multilevel cervical degenerative disc disease and central spinal and foraminal stenosis Continue duloxetine Alcohol intoxication- Alcohol level 372.7 Long discussion with patient regarding development potentially of Warnicke Korsakoff's AWSS protocol Gabapentin load to help with seizure prevention, but may also help significant cervical neck discomfort Thiamine 500 mg IV, then 100 mg IV every morning Folic acid 1 mg IV daily BPH with LUTS/urethral strictures status post surgery- Continue tamsulosin History of Present Illness Chief Complaint: The patient presents to the emergency department due to family concerns regarding worsening imbalance, transient episode of horizontal double vision this evening, and gradual worsening of mental functioning over the past several months. Primary Care Provider: Vasquez Wilburn III, KELLY The patient is a 68-year-old male with a past medical history including cervical disc disease at multiple levels, C5-C6 myelopathy, paroxysmal atrial fibrillation, SNHL, hypertension, fatty liver, urethral stricture status post surgery, BPH with LUTS, and chronic alcohol use. The patient presents to the emergency department due to family concerns as noted above. Allergies Allergy/AdvReac Type Severity Reaction Status Date / Time Penicillins Allergy Unknown ANAPHYLACTIC Verified 05/18/24 08:43 RESPONSE Home Medications Medication Instructions Recorded Confirmed Type tamsulosin 0.4 mg capsule 0.4 mg PO DAILY #90 caps 03/23/22 05/18/24 Rx sildenafil 100 mg tablet 100 mg PO DAILY PRN sexual 11/29/23 05/18/24 Rx activity #8 tabs biotin 1 mg tablet 1 mg PO DAILY 04/07/24 05/18/24 History metoprolol succinate 50 mg See Rx Instructions .Route 04/14/24 05/18/24 Rx tablet,extended release 24 hr .COMPLEX #90 tabs duloxetine 30 mg capsule,delayed 30 mg PO DAILY #90 caps 05/18/24 05/18/24 Rx release (Cymbalta) Past Med/Surg History Problem List (Updated 06/04/24 @ 04:02 by Jesse Polanco MD) Abnormal CT scan of head Carotid stenosis, bilateral Fatty liver Diplopia Alcohol intoxication (Acute) Imbalance (Acute) Cervical (neck) region somatic dysfunction Change in bowel habits Cervical disc disorder at C5-C6 level with myelopathy (Chronic) Hematuria Dysphagia Chronic anticoagulation Paroxysmal atrial fibrillation Abnormal TSH Left asymmetrical SNHL SNHL (sensorineural hearing loss) Hypertension (Chronic) Decreased hearing Dysfunction of eustachian tube Elevated blood pressure reading without diagnosis of hypertension Fatty infiltration of liver Incomplete emptying of bladder Left asymmetrical SNHL Prostate hyperplasia with urinary obstruction Medical History BPH (benign prostatic hyperplasia) SNHL (sensorineural hearing loss) Seasonal allergies History of postoperative nausea and vomiting fentanyl caused nausea, no vomiting Hx of urethral stricture History of COVID-19 (09/2022) no hosp; resolved Dysphagia HTN (hypertension) Fatty liver Hx of gout Paroxysmal atrial fibrillation states was caused by gout medication, no issues since discontinuing that medication (2021) follows w/ Dr Robert Expressive aphasia Transient ischemic attack pt denies being aware of this Surgical History S/P placement of nerve stimulator bladder stimulator implanted and removed per pt Hx of colonoscopy Hx of cystoscopy (2022) multiple procedures for urethral stricture History of bladder surgery S/P TURP (03/2014) History of inguinal hernia repair (09/17/14) left Family History Unknown Diabetes Mother Hypertension Father Hypertension Other specified hearing loss, unspecified ear Sister Asthma Other No family history of adverse response to anesthesia No family history of bleeding disorder Denies family history of Ovarian cancer Prostate cancer Myocardial infarction Breast cancer Colorectal cancer Social History Smoking Status: Former smoker Tobacco Type: Cigarettes Age Started Using Tobacco: 17; Age Quit Using Tobacco: 34; packs per day: 1; Cigarettes Per Day: 3/day; Second Hand Exposure: No; Do You Dip or Chew Tobacco: No; Hx Alcohol Use: Yes Alcohol type: hard liquor Alcohol Intake Frequency: 4 or More x per/Week Alcohol Intake Frequency Comment: 1 or 2 gin and tonics daily Hx Substance Use: No Preferred Language: Maori Communication Ability: Effective Visual Impairment: No Limitations Hearing Ability: Use of Hearing Aid Dealership Manager Required: No Beliefs That Will Affect Care: None marital status: Current Living Situation: Alone Current Living Situation Comment: lives in [place] current occupational status: retired Feels Safe at Home: Yes Childhood Exposure to Second-Hand Smoke: Yes Diet: regular Dental Care, Regularly: Yes Physical Activity Frequency: Daily Seatbelt Use: always Sunscreen Use: Yes Assistive Devices: Glasses and Hearing Aid - Left Review of Systems Review of Systems: The patient denies chest pain, palpitations, shortness of breath, dyspnea on exertion, cough, lower extremity swelling, sore throat, fevers, chills, sweats, nausea, vomiting, diarrhea , constipation, abdominal pain, pelvic pain, blood in urine or stool, dysuria, urinary frequency or urgency, lightheadedness, dizziness, headache, loss of consciousness, rash, abnormal bruising or bleeding, focal weakness, numbness or tingling in arms or legs, generalized arthralgias or myalgias, back or neck pain, or night sweats. The review of systems is otherwise negative other than for that already noted above, and at least 10 systems have been reviewed. Physical Exam Physical Exam: the patient is awake, alert and oriented 3, well developed and well nourished, normocephalic and atraumatic, lying in bed and in no acute distress. HEENT--PERRL, EOMI, mucous membranes and oropharynx mildly dry. Neck--supple. No JVD. No bruits. Thyroid normal, trachea midline, no adenopathy. Heart--normal S1 and S2. No murmurs, rubs or gallops. Lungs--clear bilaterally, no respiratory distress, no accessory muscle use. Abdomen--normal bowel sounds and soft. Nontender. Nondistended, no hernias or masses, no organomegaly. Extremities--no cyanosis or clubbing. No edema. There are good distal pulses b/l. Dermatologic--normal skin turgor, normal color, no abnormal lymph nodes, no rash. Neurologic--cranial nerves II through XII grossly intact. Rheumatologic--normal range of motion. Psychiatric--normal affect. Results & Data Results & Data Vital Signs (Past 12 Hours) Vital Signs Temp Pulse Pulse Resp BP BP Pulse Ox 06/04/24 02:34 62 06/04/24 02:30 99/71 L 06/04/24 02:30 99/71 L 06/04/24 02:30 59 L 15 95 06/04/24 02:27 60 16 93 06/04/24 02:15 66 14 06/04/24 02:00 61 16 95 06/04/24 01:30 EST 98/62 L 06/04/24 01:30 EST 66 06/04/24 01:23 EST 61 20 119/74 92 06/04/24 01:21 EST 66 15 94 06/04/24 01:12 EST 62 15 93 06/04/24 01:03 EST 68 22 94 06/04/24 01:00 EST 108/64 06/04/24 01:00 EST 108/64 06/04/24 00:30 66 17 95 06/04/24 00:21 68 20 97 06/04/24 00:09 64 13 96 06/04/24 00:00 110/64 06/03/24 23:57 65 97 06/03/24 23:42 63 23 06/03/24 23:40 62 20 97/64 L 98 06/03/24 23:39 64 14 99 06/03/24 23:36 66 06/03/24 23:35 97/64 L 06/03/24 23:28 36.2 C L 61 16 105/71 97 O2 Del Method 06/04/24 02:34 06/04/24 02:30 06/04/24 02:30 11/03/24 02:30 06/04/24 02:27 06/04/24 02:15 06/04/24 02:00 06/04/24 01:30 EST 06/04/24 01:30 EST 06/04/24 01:23 EST Room Air 06/04/24 01:21 EST 06/04/24 01:12 EST 06/04/24 01:03 EST 06/04/24 01:00 EST 06/04/24 01:00 EST 06/04/24 00:30 06/04/24 00:21 06/04/24 00:09 06/04/24 00:00 06/03/24 23:57 Room Air 06/03/24 23:42 06/03/24 23:40 Room Air 06/03/24 23:39 06/03/24 23:36 06/03/24 23:35 06/03/24 23:28 Room Air Laboratory Results Laboratory Results WBC 6.13 K/ul (4.8-10.8) 06/03/24 23:42 RBC 3.55 M/uL (4.70-6.10) L 06/03/24 23:42 Hgb 12.8 g/dl (14.0-18.0) L 06/03/24 23:42 Hct 37.5 % (42.0-52.0) L 06/03/24 23:42 MCV 105.6 fL (80.0-100.0) H 06/03/24 23:42 MCH 36.1 pg (25.0-34.0) H 06/03/24 23:42 MCHC 34.1 g/dL (32.0-36.0) 06/03/24 23:42 RDW Std Deviation 48.8 fL (36.4-46.3) H 06/03/24 23:42 RDW Coeff of Oswald 12.6 % (11.5-14.5) 06/03/24 23:42 Plt Count 216 K/uL (130-400) 06/03/24 23:42 MPV 9.8 fL (9.4-12.4) 06/03/24 23:42 Immature Gran % (Auto) 0.8 % 06/03/24 23:42 Neut % (Auto) 55.5 % 06/03/24 23:42 Lymph % (Auto) 27.4 % 06/03/24 23:42 [place] % (Auto) 12.2 % 06/03/24 23:42 Eos % (Auto) 3.4 % 06/03/24 23:42 Baso % (Auto) 0.7 % 06/03/24 23:42 Neut # (Auto) 3.40 K/uL (1.40-6.50) 06/03/24 23:42 Lymph # (Auto) 1.68 K/uL (1.20-3.40) 06/03/24 23:42 [place] # (Auto) 0.75 K/uL (0.11-0.59) H 06/03/24 23:42 Eos # (Auto) 0.21 K/uL (0.00-0.50) 06/03/24 23:42 Baso # (Auto) 0.04 K/uL (0.00-0.20) 06/03/24 23:42 Immature Gran # (Auto) 0.05 K/uL (0.01-0.20) 06/03/24 23:42 PT 11.3 Seconds (9.0-12.0) 06/03/24 23:42 INR 1.0 (0.9-1.1) 06/03/24 23:42 Sodium 139 mmol/L (136-145) 06/03/24 23:42 Potassium 4.2 mmol/L (3.5-5.1) 06/03/24 23:42 Chloride 103 mmol/L (98-107) 06/03/24 23:42 Carbon Dioxide 28 mmol/L (21-32) 06/03/24 23:42 Anion Gap 8 (3-11) 06/03/24 23:42 BUN 15 mg/dl (6-23) 06/03/24 23:42 Creatinine 0.96 mg/dl (0.6-1.4) 06/03/24 23:42 Est Cr Clr Drug Dosing 78.8 ml/min 06/03/24 23:42 eGFR 86.10 06/03/24 23:42 BUN/Creatinine Ratio 15.6 (10-20) 06/03/24 23:42 Glucose 110 mg/dl (70-99(Fasting)) H 06/03/24 23:42 Calcium 9.4 mg/dl (8.6-10.3) 06/03/24 23:42 Phosphorus 4.3 mg/dl (2.5-4.9) 06/03/24 23:42 Magnesium 1.8 mg/dl (1.7-2.4) 06/03/24 23:42 Total Bilirubin 0.6 mg/dl (0.2-1.0) 06/03/24 23:42 Direct Bilirubin 0.2 mg/dl (0-0.2) 06/03/24 23:42 AST 108 U/L (13-39) H 06/03/24 23:42 ALT 67 U/L (7-52) H 06/03/24 23:42 Alkaline Phosphatase 113 U/L (34-104) H 06/03/24 23:42 Troponin I High Sens 7.9 pg/ml (0-20) 06/03/24 23:42 Total Protein 7.4 gm/dl (6.0-8.3) 06/03/24 23:42 Albumin 4.3 gm/dl (3.4-5.0) 06/03/24 23:42 Globulin 3.1 gm/dl (2.5-4.0) 06/03/24 23:42 Albumin/Globulin Ratio 1.4 (0.9-2) 06/03/24 23:42 Lipase 43 U/L (11-82) 06/03/24 23:42 TSH 6.176 uIu/ml (0.300-4.500) H 06/03/24 23:42 Free T4 0.99 ng/dl (0.61-1.60) 06/03/24 23:42 Ethyl Alcohol mg/dL 372.7 mg/dl (<10.0) H 06/03/24 23:42 Impressions Chest X-Ray 06/03/24 23:47 EXAM: XR chest 1V portable CLINICAL HISTORY: CHEST PAIN WEAKNESS JMF TECHNIQUE: An X-ray image of the chest is obtained in AP projection. COMPARISON: No prior studies are available for comparison. FINDINGS: Pulmonary Parenchyma: No consolidation, pneumothorax, or pleural effusion. Ill-defined veiling at the left costophrenic angle Heart and Mediastinum: Borderline cardiomegaly. Mediastinal and hilar shadows normal platelet Bony Thorax: Thoracic spondylotic changes with bilateral acromioclavicular joint degenerative changes. Soft Tissues: Soft tissues overlying the chest wall are unremarkable. IMPRESSION: 1. No consolidation, pneumothorax, or pleural effusion. 2. Mild cardiomegaly. 3. Ill-defined veiling at the left costophrenic angle may represent the summation of shadows however, the possibility of small left pleural effusion cannot be excluded. Electronically signed by Zac Erazo 06-04-2024 01:[address] 06/03/24 23:51 EXAM: CT head/brain wo con CLINICAL HISTORY: neck pain, double vision, ataxia kf TECHNIQUE: Axial non-contrast CT scan of the brain was performed from the skull base to the high parietal region with coronal and sagittal reformats. One of the following dose reduction techniques were utilized for this exam: Automated exposure control, adjustment of the mA and/or kV according to patient size, use of iterative reconstruction. COMPARISON: with the prior study dated 06/13/2023. FINDINGS: Brain Parenchyma: Mild age-related cerebral involutional changes are noted. small right pontine hemiportion hypodense focus is seen, no edema of mass effect is noted. Tiny bilateral frotnal raúl ventricular hypodense foci related to small vessel disease. Normal attenuation of the cerebral hemispheres, cerebellum, and brainstem. No evidence of acute infarct, hemorrhage, or mass effect. No abnormal areas of hypo- or hyperattenuation. Ventricular System: Ventricles are slightly dilated. No evidence of hydrocephalus or ventricular enlargement. Subarachnoid Spaces: wide sulci and cisterns. No evidence of subarachnoid hemorrhage or extra-axial fluid collections. Cerebellum and Brainstem: Normal size and signal. No masses, lesions, or areas of abnormal signal. Orbits: Normal appearance of the globes, optic nerves, and extraocular muscles. No evidence of orbital masses or abnormal signals. Sinuses: Clear paranasal sinuses. No evidence of sinusitis or mucosal thickening. Mastoid Air Cells: Clear mastoid air cells. No evidence of mastoiditis. Skull and Meninges: Normal skull morphology. IMPRESSION: 1. Mild age-related cerebral involutional changes. (Stable). 2. Newly noted small hypodense focus in the right pontine hemiportion, likely low-grade ischemia of small vessel disease. 3. Still noted Tiny bilateral frontal raúl-ventricular hyperdense foci related to small vessel disease. 4. No obvious recent ischaemic or hemorrhagic foci, further MRI assessment is advised if clinically warranted. Electronically signed by Zac Erazo 06-04-2024 01:32 AM Head CTA 06/03/24 23:51 EXAM: CT angio head w con CLINICAL HISTORY: neck pain, double vision, ataxia injected with 119 cc''s optiray 320 kf TECHNIQUE: CT angiography of the head was performed following the intravenous administration of 119ml of Opitray-320mg/ml iodinated contrast material. Contiguous axial images were obtained from the base of the skull to the vertex. Coronal and sagittal reformatted images were also reviewed. One of these 3D techniques was utilized: Maximum Intensity Pixel (MIP), 3D Reconstructed Images, Volume Rendered Images, Surface Shaded Rendering. One of these 3D techniques was utilized: Maximum Intensity Pixel (MIP), 3D Reconstructed Images, Volume Rendered Images, Surface Shaded Rendering. COMPARISON: Comparison is made with the prior CT angiography dated 08/23/2018. FINDINGS: The right ICA cavernous postion shows several small calcified atheromatous plaques with no signifincat stenosis reaching about 30 %. The left ICA cavernous postion shows several small calcified atheromatous plaques with no signifincat stenosis reaching about 55%. Intracranial Arteries: The intracranial arteries, including the anterior cerebral arteries, middle cerebral arteries, posterior cerebral arteries, basilar artery, and vertebral arteries, are all patent without evidence of significant stenosis, aneurysm, or dissection. There is no evidence of vascular malformations. [place]: The [place] is intact with no anatomical variations or abnormalities noted. All segments are well-visualized and normal in appearance. Venous System: The visualized portions of the venous system, including the dural venous sinuses, are patent with no evidence of thrombosis. Brain Parenchyma: The brain parenchyma shows no evidence of acute infarction, hemorrhage, or mass effect. The ventricles and sulci are normal in size and configuration. Bones: The bony structures of the skull are intact without evidence of fracture or destructive lesions. Soft Tissues: The visualized soft tissues of the head are unremarkable. Additional Findings: No other significant findings are noted. IMPRESSION: [id number].[id number]. Evidence of bilateral ICA cavernous portions, calcified atheromatous plaques with stenosis reaching about 30% in the right side /OBX.5.1.1OBX.5.1.2 55 % in the left side./OBX.5.1.2/OBX.5.[address] angiography head is unremarkable. Electronically signed by Zac Erazo 06-04-2024 02:27 AM Neck CTA 06/03/24 23:51 EXAM: CT angio neck with con CLINICAL HISTORY: neck pain, double vision, ataxia injected with 119cc''s optiray 320 kf TECHNIQUE: CT angiography of the neck was performed following the intravenous administration of 119ml of Opitray-300mg/ml of iodinated contrast material. Axial images were obtained from the aortic arch to the vertex. Coronal and sagittal reformatted images were also reviewed. One of the following dose reduction techniques was utilized for this exam. Automated exposure control, adjustment of the mA and/or kV according to patient size, and use of iterative reconstruction. One of these 3D techniques was utilized: Maximum Intensity Pixel (MIP), 3D Reconstructed Images, Volume Rendered Images, Surface Shaded Rendering. COMPARISON: With the prior study dated 05/21/2022. FINDINGS: OBX.5.1OBX.5.1.1The right carotid bulb shows concentric atherosclerotic calcified plaque is seen causin about 54 % stenosis./OBX.5.1.1OBX.5.1.2 is see extending to the proximal segment of the right ICA causing 35 % stenosis of its lumen./OBX.5.1.2/OBX.5.1 The left carotic bubl shows another concentric stenosis by calcified circumferential atheromatous plaque causing about 45 % stenosis with a small extension to the left ICA proximal segment causing 25 % stenosis. Diffuse aortic atherosclerotic changes are noted. Carotid Arteries: The remaining portions of the common, internal, and external carotid arteries are patent bilaterally with no evidence of significant stenosis, aneurysm, or dissection. There is no evidence of atherosclerotic plaque causing significant luminal narrowing. Vertebral Arteries: The vertebral arteries are patent bilaterally with no evidence of significant stenosis, aneurysm, or dissection. Thyroid Gland: The thyroid gland is normal in size and appearance with no focal lesions. Lymph Nodes: There is no evidence of significant lymphadenopathy in the neck. Soft Tissues: The soft tissues of the neck are unremarkable with no evidence of masses or abnormal collections. Additional Findings: No other significant findings are noted. IMPRESSION: Evidence of Bilateral carotid bulbs and proximal ICA calcified atheromatous plaques with stenosis criteria as described above(54% right bulb, 35% right ICA, 45% left carotid bulb and 25 % left ICA ). Electronically signed by Zac Erazo 06-04-2024 02:33 AM Code Status & VTE Plan Code Status Full code VTE Prophylaxis Plan VTE Prophylaxis will be ordered: Yes PG Care Time/CCT Total # of Minutes Spent Total Time Spent with Patient: Total time spent is greater than 50% in coordination of care (as documented) at patient's floor/unit and/or counseling patient: Coding Level of Care Code 23736 INT INP/OBS CARE 3/75MIN Diagnoses Abnormal CT scan of head R93.0 Carotid stenosis, bilateral I65.23 Diplopia H53.2 Imbalance R26.89 Alcohol intoxication F10.929 Complication of substance-induced condition: with unspecified complication Cervical (neck) region somatic dysfunction M99.01 Cervical disc disorder at C5-C6 level with myelopathy M50.022 Paroxysmal atrial fibrillation I48.0 Hypertension I10 Fatty infiltration of liver K76.0 Prostate hyperplasia with urinary obstruction N40.1; N13.8 (5) Alcohol intoxication Complication of substance-induced condition: with unspecified complication Qualified Code(s): F10.929 - Alcohol use, unspecified with intoxication, unspecified
[2024-06-04] MEDS ORDERED: ONDANSETRON INJ 2 MG/ML 2 ML VIAL IV PRN (04:42)
[2024-06-04] MEDS ORDERED: GABAPENTIN 1200MG ALCOHOL WITHDRAWAL LOAD PO STA (04:42)
[2024-06-04] MEDS ORDERED: Ativan IV Alcohol Withdrawal--Active Protocol IV PRN (04:42)
[2024-06-04] MEDS ORDERED: LORazepam 2 MG/1 ML VIAL IV PRN ×3 (04:42)
[2024-06-04] MEDS: FOLIC ACID 1 MG in SYRINGE 9.8 ML IV STA (05:43)
[2024-06-04] MEDS: ASPIRIN 81 MG CHEW PO STA (05:43)
[2024-06-04] MEDS: GABAPENTIN 600 MG TAB PO ONE (05:45)
--- NOTE | 2024-06-04 07:15 | Magnetic Resonance Report ---
EXAM: MR brain wo con CLINICAL HISTORY: TECHNIQUE: An MRI of the brain was performed without intravenous contrast with the obtained multiplanar sequences. COMPARISON: with the prior CT study 06/03/2024. FINDINGS: Brain Parenchyma: Stable mild age-related cerebral involutional changes. Small pontine fciof signals alteration eliciting indistinct T1, anna bright T2, and FLATR WIs signals, no diffusion restriction in DWIs denoting chronic low-grade ischemic changes of small vessel disease. Still noted tiny sheet in the deep periventricular white matter related to small vessel disease. Still need dilated virchow belcher spaces. No evidence of acute infarction or hemorrhage. Normal galdamez-white matter differentiation. No mass lesions or focal cortical abnormalities were identified. Ventricles and Sulci: Mild dilatation of the lateral ventricles, third ventricle, and fourth ventricle. No evidence of hydrocephalus or ventriculomegaly. Sylvian fissures, sulci, and cisterns are within normal limits. Posterior Fossa: The cerebellum and brainstem appear normal without evidence of mass lesions or signal abnormalities. Cranial Nerves: Normal course and appearance of cranial nerves identified. Vessels: No evidence of vascular malformations or aneurysms. Intracranial arteries and veins appear normal without evidence of stenosis or occlusion. Orbits and Skull Base: Orbits and skull base structures are normal without evidence of abnormalities. IMPRESSION: 1. No recent ischemia, no hemorrhagic insult appreciated. 2. Still noted mild age-related cerebral involutional changes. 3. Still noted small pontine low-grade chronic ischemic foci related to small vessel disease. Electronically signed by Zac Erazo 06-04-2024 07:15 AM
[2024-06-04] MEDS: TAMSULOSIN HCL 0.4 MG CAP PO SCH (08:11)
[2024-06-04] MEDS: DULoxetine HCL 30 MG CAP PO SCH (08:11)
[2024-06-04] MEDS ORDERED: NON-FORMULARY MEDICATION (Biotin 1 mg Tablet) PO SCH (09:00)
--- NOTE | 2024-06-04 09:20 | Neurology Consultation ---
Date of Consultation June 04, 2024 Assessment & Plan (1) Alcohol intoxication: History of Present Illness Attending Physician: Jesus Yang MD History of Present Illness pt this morning feeling well and back to himself. no double vision. he walked to bathroom without problem. mri brain without acute findings, noted for chronic small ischemic changes in the pontine area. mri reviewed. pt with acute alcohol intoxication yesterday. pt usually drinks 2-3 drinks/night gin and tonic ,sometimes more. admission HPI: The patient is a pleasant 68-year-old gentleman with a past medical history of paroxysmal atrial fibrillation not on anticoagulation, hypertension, sensorial neural hearing loss, cervical spinal stenosis, chronic neck pain and balance, fatty liver, BPH with LUTS who presents to the emergency department via walk-in accompanied by his children for evaluation of imbalance, double vision which occurred tonight prior to arrival in the setting of having several months of decline with headache, imbalance and changes in mental status. They report that the patient was worse today and had a fall and they are walking the state and going up the ramp which is not normal for the patient. Reportedly tonight the patient was feeling worse and so drove over to their house and had reported having double vision and dizziness. Patient reports that this is resolved at this time. Patient does admit that he does drink alcohol daily and describes intake as 2 gin and tonics. He describes the glass as "tall". He reports that he has stopped drinking for a week or so in the past year but admits he started to feel shaky. He is scheduled to see neurosurgery in the next couple of weeks at [place] for his cervical spine stenosis for MRI imaging from 05/09/24 demonstrated Moderate multilevel intervertebral disc space narrowing and facet arthrosis resulting in associated central canal and neuroforaminal stenosis. There is description of flattening of the ventral thecal sac at the level of C3-C4. Patient denies any new urinary retention or loss of bowel control. On evaluation the patient is fatigued, somnolent appearing though he presents emergency department at 2300. He has subtle dysarthric speech and past-pointing bilaterally with ataxia lower extremities. EKG without overt acute ischemia. WBC and Platelets wnl. H/H similar to prior. Chemistry without metabolic acidosis. AST and ALT 108 and 67, respectively, similar to prior. FTs otherwise normal. High-sensitivity troponin 0.9, within normal limits. Lipase normal. TSH is pending. Medical alcohol was 372 at 2340 in the setting of patient report his last drink was earlier today. CT of the head demonstrates age-related changes as well as description of a newly noted small hypodense focus in the right pontine Oseas portion which may reflect low-grade ischemia of small vessel disease. Additional note of tiny bilateral frontal periventricular hyperdense foci related to small vessel disease. CTA of the head and neck demonstrates mild-moderate carotid artery stenosis. Given the patient's CT findings the patient and family agree with plan for admission for further assessment. Additionally, they agree that patient does need to address his alcohol dependence. At this time the patient does not exhibit any signs or symptoms of withdrawal. Allergies Allergy/AdvReac Type Severity Reaction Status Date / Time Penicillins Allergy Unknown ANAPHYLACTIC Verified 05/18/24 08:43 RESPONSE Home Medications Medication Instructions Recorded Confirmed Type tamsulosin 0.4 mg capsule 0.4 mg PO DAILY #90 caps 03/23/22 05/18/24 Rx sildenafil 100 mg tablet 100 mg PO DAILY PRN sexual 11/29/23 05/18/24 Rx activity #8 tabs biotin 1 mg tablet 1 mg PO DAILY 04/07/24 05/18/24 History metoprolol succinate 50 mg See Rx Instructions .Route 04/14/24 05/18/24 Rx tablet,extended release 24 hr .COMPLEX #90 tabs duloxetine 30 mg capsule,delayed 30 mg PO DAILY #90 caps 05/18/24 05/18/24 Rx release (Cymbalta) Patient History Medical History BPH (benign prostatic hyperplasia) SNHL (sensorineural hearing loss) Seasonal allergies History of postoperative nausea and vomiting fentanyl caused nausea, no vomiting Hx of urethral stricture History of COVID-19 (09/2022) no hosp; resolved Dysphagia HTN (hypertension) Fatty liver Hx of gout Paroxysmal atrial fibrillation states was caused by gout medication, no issues since discontinuing that medication (2021) follows w/ Dr Robert Expressive aphasia Transient ischemic attack pt denies being aware of this Surgical History S/P placement of nerve stimulator bladder stimulator implanted and removed per pt Hx of colonoscopy Hx of cystoscopy (2022) multiple procedures for urethral stricture History of bladder surgery S/P TURP (03/2014) History of inguinal hernia repair (09/17/14) left Family History Unknown Diabetes Mother Hypertension Father Hypertension Other specified hearing loss, unspecified ear Sister Asthma Other No family history of adverse response to anesthesia No family history of bleeding disorder Denies family history of Ovarian cancer Prostate cancer Myocardial infarction Breast cancer Colorectal cancer Social History Smoking Status: Former smoker Tobacco Type: Cigarettes Age Started Using Tobacco: 17; Age Quit Using Tobacco: 34; packs per day: 1; Cigarettes Per Day: 3; Smoking End Date: 1989; Second Hand Exposure: No; Do You Dip or Chew Tobacco: No; Hx Alcohol Use: Yes Alcohol type: hard liquor Alcohol Intake Frequency: 4 or More x per/Week Alcohol Intake Frequency Comment: 1 or 2 gin and tonics daily Hx Substance Use: No Preferred Language: Burkinan Communication Ability: Effective Visual Impairment: No Limitations Hearing Ability: Use of Hearing Aid Shaker Washer Required: No Beliefs That Will Affect Care: None marital status: Current Living Situation: Alone Current Living Situation Comment: lives in [place] current occupational status: retired Other Information That Helps Us Care for You: No Feels Safe at Home: Yes Safety Concerns: Feels Safe At This Time Childhood Exposure to Second-Hand Smoke: Yes Diet: regular Dental Care, Regularly: Yes Physical Activity Frequency: Daily Seatbelt Use: always Sunscreen Use: Yes Assistive Devices: Glasses and Hearing Aid - Left Exam (Neuro) Physical Exam: HEENT: normocephalic grossly Neuro: Mental: AOx4, fluent speech, normal comprehension, no apraxia, no L/R confusion, no neglect,knew the name of hospital and month and year. CN: PERRL, Full EOM, symmetric face, midline T/U/P, grossly full ROM neck Motor: No abnormal movements, normal tone, 5/5 t/o bilaterally Coord: intact FNT b/l DTR: 2+ sym b/l Gait: deferred. pt states he walked to bathroom without problem. Impression: 68 yo male with chronic alcohol abuse, who likely had acute intoxication related worsening gait and imbalance and confusion yesterday. His MRI brain appears stable without acute finding. the faint signal change in the pontine area appears chronic and not acute. He is at high risk for alcohol related dementia, including wernicke's encephalopathy etc. Recommendations: need alcohol cessation treatment. no need for further stroke work up from neurology stand point. thiamine therapy as per atrial fib treatment, continue with cardiology as now and prn us of eliquis with cardiac monitoring. call again if new question. Chart reviewed I have spent more than 50% educating patient about potential diagnosis and neurological evaluation and coordinating care with patient's treatment team. Total time spent (including chart review and coordination of care): 60 min (this includes chart review). Results & Data Vital Signs (Past 12 Hours) Vital Signs Temp Pulse Pulse Resp BP BP Pulse Ox 06/04/24 07:38 36.5 C 59 L 18 121/67 06/04/24 04:55 57 L 06/04/24 04:42 36.3 C L 57 L 18 157/79 H 99 06/04/24 04:01 57 L 19 114/79 96 06/04/24 03:30 67 15 124/74 96 06/04/24 02:34 62 06/04/24 02:30 99/71 L 06/04/24 02:30 99/71 L 06/04/24 02:30 59 L 15 95 06/04/24 02:27 60 16 93 06/04/24 02:15 66 14 06/04/24 02:00 61 16 95 06/04/24 01:30 EST 98/62 L 06/04/24 01:30 EST 66 06/04/24 01:23 EST 61 20 119/74 92 06/04/24 01:21 EST 66 15 94 06/04/24 01:12 EST 62 15 93 06/04/24 01:03 EST 68 22 94 06/04/24 01:00 EST 108/64 06/04/24 01:00 EST 108/64 06/04/24 00:30 66 17 95 06/04/24 00:21 68 20 97 06/04/24 00:09 64 13 96 06/04/24 00:00 110/64 06/03/24 23:57 65 97 06/03/24 23:42 63 23 06/03/24 23:40 62 20 97/64 L 98 06/03/24 23:39 64 14 99 06/03/24 23:36 66 06/03/24 23:35 97/64 L 06/03/24 23:28 36.2 C L 61 16 105/71 97 O2 Del Method 06/04/24 07:38 Room Air 06/04/24 04:55 06/04/24 04:42 Room Air 06/04/24 04:01 Room Air 06/04/24 03:30 Room Air 06/04/24 02:34 06/04/24 02:30 06/04/24 02:30 06/04/24 02:30 06/04/24 02:27 06/04/24 02:15 06/04/24 02:00 06/04/24 01:30 EST 06/04/24 01:30 EST 06/04/24 01:23 EST Room Air 06/04/24 01:21 EST 06/04/24 01:12 EST 06/04/24 01:03 EST 06/04/24 01:00 EST 06/04/24 01:00 EST 06/04/24 00:30 06/04/24 00:21 06/04/24 00:09 06/04/24 00:00 06/03/24 23:57 Room Air 06/03/24 23:42 06/03/24 23:40 Room Air 06/03/24 23:39 06/03/24 23:36 06/03/24 23:35 06/03/24 23:28 Room Air PG Care Time/CCT Total # of Minutes Spent Total Time Spent with Patient: Total time spent is greater than 50% in coordination of care (as documented) at patient's floor/unit and/or counseling patient: Coding Level of Care Code 95435 IN/OBS CONSULT LVL 4,60M Diagnoses Alcohol intoxication F10.929 Complication of substance-induced condition: with unspecified complication (1) Alcohol intoxication Complication of substance-induced condition: with unspecified complication Q ualified Code(s): F10.929 - Alcohol use, unspecified with intoxication, unspecified
--- NOTE | 2024-06-04 11:15 | Hospitalist Progress Note ---
Date of Service June 04, 2024 Assessment & Plan (1) Abnormal CT scan of head: (2) Carotid stenosis, bilateral: (3) Diplopia: (4) Imbalance: (5) Alcohol intoxication: (6) Cervical (neck) region somatic dysfunction: (7) Cervical disc disorder at C5-C6 level with myelopathy: (8) Paroxysmal atrial fibrillation: (9) Hypertension: (10) Fatty infiltration of liver: (11) Prostate hyperplasia with urinary obstruction: (12) Fatty liver: Plan Confusion/progressive weakness/imbalance/diplopia/abnormal CT scan of head/carotid stenosis - CT scan of head showed a newly noted small hypodense focus in the right pontine Oseas portion, likely low-grade ischemia of small vessel disease. Tiny bilateral frontal periventricular hyperdense foci/small vessel disease. - CTA of head bilateral ICA cavernous stenosis, 30% on the right side and 55% on the left side - CTA of neck, SHANNON stenosis 35%, LICA stenosis 45% - No focal neurologic deficits noted on examination - Neurology consult: Small age indeterminate hypodensity in right pontine region, very faint and likely chronic, brain MRI negative for acute stroke, previous neck MRI 05/09 also reviewed by neurology, no loss of bladder/bowel function, incontinence - high risk for alcoholic dementia and Wernicke encephalopathy - OT/PT consults - Plan for inpatient rehabilitation Cervical spine stenosis multilevel C5-C6 with myelopathy Multilevel cervical degenerative disc disease and central spinal and foraminal stenosis Neck MRI 05/09 reviewed by neurology Continue duloxetine Alcohol intoxication Alcohol level 372.7 Long discussion with patient regarding development potentially of Warnicke Korsakoff's AWSS protocol Gabapentin load to help with seizure prevention, but may also help significant cervical neck discomfort Thiamine 500 mg IV, then 100 mg IV every morning Folic acid 1 mg IV daily BPH with LUTS/urethral strictures status post surgery- Continue tamsulosin Admission and Anticipated Discharge Date Admission Date: June 04, 2024 Supervising Physician Co-Signing Physician Notes Attending attestation Pt seen and examined in concert with Dr. Salcedo. In agreement with the documented findings as noted in the resident documentation with any exceptions or additions as noted here. History obtained today on phonecall with spouse who provided supporting history. Patient with longstanding alcohol consumption with rate of 1.7L of gin and 1.7L of vodka per week with the last known period of possible cessation approx 2 years ago for a brief period. Spouse with significant concerns. Per patient, had 1.5 drinks prior to presentation at the game and had a ethyl alcohol level as noted. On examination, S1/S2 nl RRR no MCG. CTAB. Abd NT/ND BS+ve Ambulatory dysfunction/balance changes in the setting of progressive weakness, confusion, diplopia - PT/OT consult - neurology consult without concern for acute or chronic structural process at this time - B12, folate, TSH, HIV, B2, B6, RPR Alcohol intoxication with concern for withdrawal, last drink immediately [employer]SEM[employer] - thiamine, folate repletion. Gabapentin and lorazepam by [facility] protocol. Strongly encouraged rehab services and cessation. Else see resident documentation as noted. Augustin Bang is a 68 y/o M with a past medical history of paroxysmal a-fib not on anticoagulation, HTN, cervical spinal stenosis, BPH and LUTS is resting comfortably when seen this morning. 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 Patient endorses falling at the [employer] football game when walking into the stadium up the ramp. Patient scraped his knee but without additional trauma. Today patient denies feeling dizzy, lightheaded, or a lack of balance from short walks to use the restroom. Patient does admit to drinking around 2-3 gin and tonics per day. When asked further patient admits to finishing approximately 2, 1.75 L handles of gin and vodka per week. Patient endorses that he has tried alcohol cessation in the past, and understands the importance of trying again now and is amenable. Patient was seen again in the afternoon with his family present. Family is supportive of trying inpatient rehabilitation. Physical Exam Physical Exam: General: patient resting comfortably, NAD, non-toxic in appearance, answers questions appropriately. Skin: warm, dry, intact HEENT: NC/AT, anicteric sclera, conjunctiva without injection, moist mucus membranes. Heart: +S1/S2, regular, no m/r/g Lungs: equal air entry bilaterally, no rales/rhonchi/wheezes Abd: +BS, soft, NT/ND Ext: warm, no clubbing/cyanosis or edema, Odilia's neg. Neuro: nonfocal, speech intact, no facial droop, moving all extremities. Results & Data Results & Data Vital Signs (Past 12 Hours) Vital Signs Temp Pulse Pulse Resp BP BP Pulse Ox 06/04/24 09:22 60 06/04/24 07:38 36.5 C 59 L 18 121/67 06/04/24 04:55 57 L 06/04/24 04:42 36.3 C L 57 L 18 157/79 H 99 06/04/24 04:01 57 L 19 114/79 96 06/04/24 03:30 67 15 124/74 96 06/04/24 02:34 62 06/04/24 02:30 99/71 L 06/04/24 02:30 99/71 L 06/04/24 02:30 59 L 15 95 06/04/24 02:27 60 16 93 06/04/24 02:15 66 14 06/04/24 02:00 61 16 95 06/04/24 01:30 EST 98/62 L 06/04/24 01:30 EST 66 06/04/24 01:23 EST 61 20 119/74 92 06/04/24 01:21 EST 66 15 94 06/04/24 01:12 EST 62 15 93 06/04/24 01:03 EST 68 22 94 06/04/24 01:00 EST 108/64 06/04/24 01:00 EST 108/64 06/04/24 00:30 66 17 95 06/04/24 00:21 68 20 97 O2 Del Method 06/04/24 09:22 06/04/24 07:38 Room Air 06/04/24 04:55 06/04/24 04:42 Room Air 06/04/24 04:01 Room Air 06/04/24 03:30 Room Air 06/04/24 02:34 06/04/24 02:30 06/04/24 02:30 06/04/24 02:30 06/04/24 02:27 06/04/24 02:15 06/04/24 02:00 06/04/24 01:30 EST 06/04/24 01:30 EST 06/04/24 01:23 EST Room Air 06/04/24 01:21 EST 06/04/24 01:12 EST 06/04/24 01:03 EST 06/04/24 01:00 EST 06/04/24 01:00 EST 06/04/24 00:30 06/04/24 00:21 Resident Activity Tracking Resident Involvement: Resident Care Provided Care Provided: Adult Hospital Medicine (5) Alcohol intoxication Complication of substance-induced condition: with unspecified complication Qualified Code(s): F10.929 - Alcohol use, unspecified with intoxication, unspecified
[2024-06-04] MEDS: GABAPENTIN 600 MG TAB PO SCH ×2 (12:19→23:47)
--- NOTE | 2024-06-04 17:33 | Electrocardiogram Report ---
Test Reason : Blood Pressure : */* mmHG Vent. Rate : 62 BPM Atrial Rate : 62 BPM P-R Int : 190 ms QRS Dur : 78 ms QT Int : 432 ms P-R-T Axes : 50 51 51 degrees QTcB Int : 438 ms Normal sinus rhythm Normal ECG When compared with ECG of 13-Jun-2023 10:43, No significant change was found Confirmed by Perla De Los Santos (Christina) on 06/04/2024 5:33:40 PM Referred By: REFERRED SELF Confirmed By: Perla De Los Santos
[2024-06-05 06:54] LABS: Basophils # (auto) 0.04 K/uL (0.00-0.20); Basophils % (auto) 0.7 %; Eosinophils # (auto) 0.23 K/uL (0.00-0.50); Eosinophils % (auto) 3.8 %; Hematocrit (blood only) 34.8 % (42.0-52.0); Hemoglobin 12.4 g/dl (14.0-18.0); Immature Granulocytes # (auto) 0.03 K/uL (0.01-0.20); Immature Granulocytes % (auto) 0.5 %; Lymphocytes # (auto) 1.38 K/uL (1.20-3.40); Lymphocytes % (auto) 22.6 %; Mean Corpuscular Hemoglobin 36.2 pg (25.0-34.0); Mean Corpuscular Hgb Conc 35.6 g/dL (32.0-36.0); Mean Corpuscular Volume 101.5 fL (80.0-100.0); Mean Platelet Volume 9.9 fL (9.4-12.4); Monocytes # (auto) 0.57 K/uL (0.11-0.59); Monocytes % (auto) 9.3 %; Neutrophils # (auto) 3.86 K/uL (1.40-6.50); Neutrophils % (auto) 63.1 %; Platelet Count 187 K/uL (130-400); RDW Coefficient of Variation 12.3 % (11.5-14.5); RDW Standard Deviation 46.5 fL (36.4-46.3); Red Blood Count 3.43 M/uL (4.70-6.10); White Blood Count 6.11 K/ul (4.8-10.8)
[2024-06-05 07:21] LABS: Albumin Globulin Ratio 1.4 (0.9-2); Albumin Level 3.8 gm/dl (3.4-5.0); BUN Creatinine Ratio 17.6 (10-20); Calcium 8.7 mg/dl (8.6-10.3); Creatinine Clr Calc Pharmacy 91.1 ml/min; Globulin 2.7 gm/dl (2.5-4.0); Magnesium 1.4 mg/dl (1.7-2.4); Potassium 4.2 mmol/L (3.5-5.1); Total Protein 6.5 gm/dl (6.0-8.3)
[2024-06-05 07:35] LABS: Thyroid Stimulating Hormone 7.371 uIu/ml (0.300-4.500)
[2024-06-05 07:48] LABS: Folate (Folic Acid),Ser orPlas 5.6 ng/ml (>5.38)
[2024-06-05] MEDS: FOLIC ACID 1 MG in SYRINGE 9.8 ML IV SCH (08:08)
[2024-06-05] MEDS: ASPIRIN 81 MG ECTAB PO SCH (08:08)
[2024-06-05] MEDS: THIAMINE HCL 100 MG in SYRINGE 9 ML IV SCH (08:08)
[2024-06-05] MEDS: CYANOCOBALAMIN (B-12) 500 MCG TABLET PO SCH (09:01)
[2024-06-05] MEDS: MAGNESIUM SULFATE / D5W 1 GM/100 ML BAG IV SCH (09:01)
--- NOTE | 2024-06-05 17:08 | Hospitalist Progress Note ---
Date of Service June 05, 2024 Assessment & Plan (1) Abnormal CT scan of head: (2) Carotid stenosis, bilateral: (3) Diplopia: (4) Imbalance: (5) Alcohol intoxication: (6) Cervical (neck) region somatic dysfunction: (7) Cervical disc disorder at C5-C6 level with myelopathy: (8) Paroxysmal atrial fibrillation: (9) Hypertension: (10) Fatty infiltration of liver: (11) Prostate hyperplasia with urinary obstruction: Plan Alcohol intoxication Alcohol level 372.7 on presentation Long discussion with patient regarding development potentially of Wernicke Korsakoff's AWSS protocol Gabapentin load to help with seizure prevention, but may also help significant cervical neck discomfort Thiamine 500 mg IV, then 100 mg IV every morning Folic acid 1 mg IV daily --- Referrals placed to inpatient drug and alcohol rehab facilities as 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 Tiny bilateral frontal periventricular hyperdense foci/small vessel disease. - CTA of head bilateral ICA cavernous stenosis, 30% on the right side and 55% on the left side - CTA of neck, SHANNON stenosis 35%, LICA stenosis 45% - No focal neurologic deficits noted on examination - Neurology consult: Small age indeterminate hypodensity in right pontine region, very faint and likely chronic, brain MRI negative for acute stroke, previous neck MRI 05/09 also reviewed by neurology, no loss of bladder/bowel function, incontinence - high risk for alcoholic dementia and Wernicke encephalopathy - OT/PT consults - Plan for inpatient rehabilitation --- PT/OT advising return to home when medically stable, no physical rehabilitation indication. Cervical spine stenosis multilevel C5-C6 with myelopathy Multilevel cervical degenerative disc disease and central spinal and foraminal stenosis Neck MRI 05/09 reviewed by neurology Continue duloxetine -- Unlikely contribution to current picture BPH with LUTS/urethral strictures status post surgery- Continue tamsulosin Disposition: Transition to Treatment facility pending referrals/bed availability. Admission and Anticipated Discharge Date Admission Date: June 04, 2024 Supervising Physician Co-Signing Physician Notes I personally examined the patient and verified all [place] points of history and exam, discussed case, and agree with decision making with Dr Salcedo feeling better walking reasonably well. extensive d/w pt and family re options/next steps/etc. admits that EtOH is probably largely from depression/stress and likely also loneliness and boredom vitals noted nad heent nc at mmm breathing unlabored no accessory muscles good effort skin no rashes no pallor or icterus Ambulatory dysfunction/balance changes in the setting of progressive weakness, confusion, diplopia - PT/OT input appreciated. B12 low - replace. doing better can do outpt PT Alcohol intoxication with concern for withdrawal, doing better - drinks due to depression. extensive discussion on other means of stress management/lifestyle, discussed rehab inpt vs outpt family going to discuss options with pt Else see resident documentation as noted. Augustin Bang is a 68 y/o M with a past medical history of paroxysmal a-fib not on anticoagulation, HTN, cervical spinal stenosis, BPH and LUTS is resting comfortably when seen this morning. 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 Patient endorses falling at the [employer] football game when walking into the stadium up the ramp. Patient scraped his knee but without additional trauma. Today patient denies feeling dizzy, lightheaded, or a lack of balance from short walks to use the restroom. Patient does admit to drinking around 2-3 gin and tonics per day. When asked further patient admits to finishing approximately 2, 1.75 L handles of gin and vodka per week. Patient endorses that he has tried alcohol cessation in the past, and understands the importance of trying again now and is amenable. Patient was seen again in the afternoon with his family present. Family is supportive of trying inpatient rehabilitation. 06/05: Patient seen resting comfortably in bed enjoying his lunch w/ adult children at bedside. No acute concerns, feeling much improved. Physical Exam Physical Exam: General: patient resting comfortably, NAD, non-toxic in appearance, answers questions appropriately. Skin: warm, dry, intact HEENT: NC/AT, anicteric sclera, conjunctiva without injection, moist mucus membranes. Heart: +S1/S2, regular, no m/r/g Lungs: equal air entry bilaterally, no rales/rhonchi/wheezes Abd: +BS, soft, NT/ND Ext: warm, no clubbing/cyanosis or edema, Odilia's neg. Neuro: nonfocal, speech intact, no facial droop, moving all extremities. Results & Data Results & Data Vital Signs (Past 12 Hours) Vital Signs Temp Pulse Resp BP Pulse Ox O2 Del Method 06/05/24 13:08 Room Air 06/05/24 11:04 36.8 C 72 18 130/70 96 Room Air 06/05/24 06:54 36.8 C 73 18 170/89 H 98 Room Air Resident Activity Tracking Resident Involvement: Resident Care Provided Care Provided: Adult Hospital Medicine (5) Alcohol intoxication Complication of substance-induced condition: with unspecified complication Qualified Code(s): F10.929 - Alcohol use, unspecified with intoxication, unspecified
--- NOTE | 2024-06-05 18:45 | Billing Data ---
Date of Service June 05, 2024 Coding Level of Care Code 34905 SUB INP/OBS CARE
[2024-06-05] MEDS: POLYETHYLENE (MIRALAX) 17 GM PACK PO PRN (20:44)
[2024-06-06] MEDS: GABAPENTIN 600 MG TAB PO SCH (05:53)
--- NOTE | 2024-06-06 06:43 | Hospitalist Progress Note ---
Date of Service June 06, 2024 Assessment & Plan (1) Abnormal CT scan of head: (2) Carotid stenosis, bilateral: (3) Diplopia: (4) Imbalance: (5) Alcohol intoxication: (6) Cervical (neck) region somatic dysfunction: (7) Cervical disc disorder at C5-C6 level with myelopathy: (8) Paroxysmal atrial fibrillation: (9) Hypertension: (10) Fatty infiltration of liver: (11) Prostate hyperplasia with urinary obstruction: Plan Alcohol intoxication Alcohol level 372.7 on presentation Long discussion with patient regarding development potentially of Wernicke Korsakoff's AWSS protocol Gabapentin load to help with seizure prevention, but may also help significant cervical neck discomfort Oral thiamine and Folate supplementation Referrals placed to inpatient drug and alcohol rehab facilities as alcohol overuse is primary chair car driver for patient's admission Patient and family are agreeable to seeing inpatient rehabilitation Patient accepted by [facility], patient will transport patient tomorrow Weakness/Imbalance - CT scan of head showed a newly noted small hypodense focus in the right pontine Oseas portion, likely low-grade ischemia of small vessel disease. Tiny bilateral frontal periventricular hyperdense foci/small vessel disease. - CTA of head bilateral ICA cavernous stenosis, 30% on the right side and 55% on the left side - CTA of neck, SHANNON stenosis 35%, LICA stenosis 45% - No focal neurologic deficits noted on examination - Neurology consult: Small age indeterminate hypodensity in right pontine region, very faint and likely chronic, brain MRI negative for acute stroke, previous neck MRI 05/09 also reviewed by neurology, no loss of bladder/bowel function, incontinence - high risk for alcoholic dementia and Wernicke encephalopathy - OT/PT consults - Plan for inpatient rehabilitation --- PT/OT advising return to home when medically stable, no physical rehabilitation indication. Cervical spine stenosis multilevel C5-C6 with myelopathy Multilevel cervical degenerative disc disease and central spinal and foraminal stenosis Neck MRI 05/09 reviewed by neurology Continue duloxetine -- Unlikely contribution to current picture BPH with LUTS/urethral strictures status post surgery- Continue tamsulosin Disposition: Transition to Treatment facility pending referrals/bed availability. Admission and Anticipated Discharge Date Admission Date: June 05, 2024 Supervising Physician Co-Signing Physician Notes I personally examined the patient and verified all [place] points of history and exam, discussed case, and agree with decision making with Dr Salcedo working on rehabs when i saw him - later had placement in [facility] - better overall for pt and if he goes in AM vitals noted nad heent nc at mmm breathing unlabored no accessory muscles good effort skin no rashes no pallor or icterus Ambulatory dysfunction/balance changes in the setting of progressive weakness, confusion, diplopia - PT/OT input appreciated/noted. B12 low - replace. doing better can do outpt PT Alcohol intoxication with concern for withdrawal, doing better - drinks due to depression. 06/05 extensive discussion on other means of stress management/lifestyle, for rehab anticipate rehab tomorrow Else see resident documentation as noted. Subjective Patient doing well today, and in no apparent distress. Patient reports no acute events overnight and has remained medically stable without any symptoms of withdrawal. Patient awaiting placement into inpatient alcohol rehab program. Physical Exam Physical Exam: General: patient resting comfortably, NAD, non-toxic in appearance, answers questions appropriately. Skin: warm, dry, intact HEENT: NC/AT, anicteric sclera, conjunctiva without injection, moist mucus membranes. Heart: +S1/S2, regular, no m/r/g Lungs: equal air entry bilaterally, no rales/rhonchi/wheezes Abd: +BS, soft, NT/ND Ext: warm, no clubbing/cyanosis or edema, Odilia's neg. Neuro: nonfocal, speech intact, no facial droop, moving all extremities. Results & Data Results & Data Vital Signs (Past 12 Hours) Vital Signs Temp Pulse Resp BP Pulse Ox O2 Del Method 06/05/24 20:30 Room Air 06/05/24 20:30 36.3 C L 76 16 161/84 H 98 Room Air Resident Activity Tracking Resident Involvement: Resident Care Provided Care Provided: Adult Hospital Medicine (5) Alcohol intoxication Complication of substance-induced condition: with unspecified complication Qualified Code(s): F10.929 - Alcohol use, unspecified with intoxication, unspecified
[2024-06-06 06:44] LABS: Basophils # (auto) 0.04 K/uL (0.00-0.20); Basophils % (auto) 0.5 %; Eosinophils # (auto) 0.34 K/uL (0.00-0.50); Eosinophils % (auto) 4.4 %; Hematocrit (blood only) 38.1 % (42.0-52.0); Hemoglobin 13.4 g/dl (14.0-18.0); Immature Granulocytes # (auto) 0.02 K/uL (0.01-0.20); Immature Granulocytes % (auto) 0.3 %; Lymphocytes % (auto) 16.8 %; Mean Corpuscular Hgb Conc 35.2 g/dL (32.0-36.0); Mean Corpuscular Volume 102.4 fL (80.0-100.0); Mean Platelet Volume 9.9 fL (9.4-12.4); Neutrophils # (auto) 5.36 K/uL (1.40-6.50); Platelet Count 182 K/uL (130-400); RDW Coefficient of Variation 12.2 % (11.5-14.5); RDW Standard Deviation 46.2 fL (36.4-46.3); Red Blood Count 3.72 M/uL (4.70-6.10); White Blood Count 7.76 K/ul (4.8-10.8)
[2024-06-06 07:08] LABS: BUN Creatinine Ratio 14.9 (10-20); Calcium 9.1 mg/dl (8.6-10.3); Creatinine Clr Calc Pharmacy 101.9 ml/min; Potassium 4.5 mmol/L (3.5-5.1)
[2024-06-06 15:14] VITALS: RESP 16
--- NOTE | 2024-06-06 17:36 | Billing Data ---
Date of Service June 06, 2024 Coding Level of Care Code 32379 SUB INP/OBS CARE
[2024-06-07 07:33] VITALS: BP 142/81; PULSE 92; TEMP 97.5; O2SAT 93
--- NOTE | 2024-06-07 07:49 | Discharge Summary ---
Date of Service June 07, 2024 Admission HPI Per Admitting Provider The patient is a 68-year-old male with a past medical history including cervical disc disease at multiple levels, C5-C6 myelopathy, paroxysmal atrial fibrillation, SNHL, hypertension, fatty liver, urethral stricture status post surgery, BPH with LUTS, and chronic alcohol use. The patient presents to the emergency department due to family concerns as noted above. Principal Diagnosis Confusion, fall, AMS, ETOH abuse Discharge Exam General: patient resting comfortably, NAD, non-toxic in appearance, answers questions appropriately. Skin: warm, dry, intact HEENT: NC/AT, anicteric sclera, conjunctiva without injection, moist mucus membranes. Heart: +S1/S2, regular, no m/r/g Lungs: equal air entry bilaterally, no rales/rhonchi/wheezes Abd: +BS, soft, NT/ND Ext: warm, no clubbing/cyanosis or edema, Odilia's neg. Neuro: nonfocal, speech intact, no facial droop, moving all extremities. Discharge Data Allergies Allergy/AdvReac Type Severity Reaction Status Date / Time Penicillins Allergy Unknown ANAPHYLACTIC Verified 05/18/24 08:43 RESPONSE Consultations 06/04/24 02:24 ED Decision to Admit Stat 06/04/24 04:42 Consult Neurology Routine Ordered Studies 06/03/24 23:51 CT angio head w con Stat CT angio neck with con Stat CT head/brain wo con Stat 06/04/24 03:34 MRI Brain [MR brain wo con] Stat Laboratory Results WBC 7.76 K/ul (4.8-10.8) 06/06/24 06:16 RBC 3.72 M/uL (4.70-6.10) L 06/06/24 06:16 Hgb 13.4 g/dl (14.0-18.0) L 06/06/24 06:16 Hct 38.1 % (42.0-52.0) L 06/06/24 06:16 MCV 102.4 fL (80.0-100.0) H 06/06/24 06:16 MCH 36.0 pg (25.0-34.0) H 06/06/24 06:16 MCHC 35.2 g/dL (32.0-36.0) 06/06/24 06:16 RDW Std Deviation 46.2 fL (36.4-46.3) 06/06/24 06:16 RDW Coeff of Oswald 12.2 % (11.5-14.5) 06/06/24 06:16 Plt Count 182 K/uL (130-400) 06/06/24 06:16 MPV 9.9 fL (9.4-12.4) 06/06/24 06:16 Immature Gran % (Auto) 0.3 % 06/06/24 06:16 Neut % (Auto) 69.0 % 06/06/24 06:16 Lymph % (Auto) 16.8 % 06/06/24 06:16 Esmeralda % (Auto) 9.0 % 06/06/24 06:16 Eos % (Auto) 4.4 % 06/06/24 06:16 Baso % (Auto) 0.5 % 06/06/24 06:16 Neut # (Auto) 5.36 K/uL (1.40-6.50) 06/06/24 06:16 Lymph # (Auto) 1.30 K/uL (1.20-3.40) 06/06/24 06:16 Esmeralda # (Auto) 0.70 K/uL (0.11-0.59) H 06/06/24 06:16 Eos # (Auto) 0.34 K/uL (0.00-0.50) 06/06/24 06:16 Baso # (Auto) 0.04 K/uL (0.00-0.20) 06/06/24 06:16 Immature Gran # (Auto) 0.02 K/uL (0.01-0.20) 06/06/24 06:16 PT 11.3 Seconds (9.0-12.0) 06/03/24 23:42 INR 1.0 (0.9-1.1) 06/03/24 23:42 Sodium 135 mmol/L (136-145) L 06/06/24 06:16 Potassium 4.5 mmol/L (3.5-5.1) 06/06/24 06:16 Chloride 101 mmol/L (98-107) 06/06/24 06:16 Carbon Dioxide 25 mmol/L (21-32) 06/06/24 06:16 Anion Gap 9 (3-11) 06/06/24 06:16 BUN 11 mg/dl (6-23) 06/06/24 06:16 Creatinine 0.74 mg/dl (0.6-1.4) 06/06/24 06:16 Est Cr Clr Drug Dosing 101.9 ml/min 06/06/24 06:16 eGFR 98.08 06/06/24 06:16 BUN/Creatinine Ratio 14.9 (10-20) 06/06/24 06:16 Glucose 125 mg/dl (70-99(Fasting)) H 06/06/24 06:16 Calcium 9.1 mg/dl (8.6-10.3) 06/06/24 06:16 Phosphorus 4.3 mg/dl (2.5-4.9) 06/03/24 23:42 Magnesium 1.4 mg/dl (1.7-2.4) L 06/05/24 06:30 Total Bilirubin 1.0 mg/dl (0.2-1.0) 06/05/24 06:30 Direct Bilirubin 0.2 mg/dl (0-0.2) 06/03/24 23:42 AST 66 U/L (13-39) H 06/05/24 06:30 ALT 45 U/L (7-52) 06/05/24 06:30 Alkaline Phosphatase 64 U/L (34-104) 06/05/24 06:30 Troponin I High Sens 7.9 pg/ml (0-20) 06/03/24 23:42 Total Protein 6.5 gm/dl (6.0-8.3) 06/05/24 06:30 Albumin 3.8 gm/dl (3.4-5.0) 06/05/24 06:30 Globulin 2.7 gm/dl (2.5-4.0) 06/05/24 06:30 Albumin/Globulin Ratio 1.4 (0.9-2) 06/05/24 06:30 Lipase 43 U/L (11-82) 06/03/24 23:42 Vitamin B12 254 pg/ml (180-914) 06/05/24 06:30 Folate 5.60 ng/ml (>5.38) 06/05/24 06:30 TSH 7.371 uIu/ml (0.300-4.500) H 06/05/24 06:30 Free T4 0.99 ng/dl (0.61-1.60) 06/03/24 23:42 Ethyl Alcohol mg/dL 372.7 mg/dl (<10.0) H 06/03/24 23:42 Impressions Chest X-Ray 06/03/24 23:47 EXAM: XR chest 1V portable CLINICAL HISTORY: CHEST PAIN WEAKNESS JMF TECHNIQUE: An X-ray image of the chest is obtained in AP projection. COMPARISON: No prior studies are available for comparison. FINDINGS: Pulmonary Parenchyma: No consolidation, pneumothorax, or pleural effusion. Ill-defined veiling at the left costophrenic angle Heart and Mediastinum: Borderline cardiomegaly. Mediastinal and hilar shadows normal platelet Bony Thorax: Thoracic spondylotic changes with bilateral acromioclavicular joint degenerative changes. Soft Tissues: Soft tissues overlying the chest wall are unremarkable. IMPRESSION: 1. No consolidation, pneumothorax, or pleural effusion. 2. Mild cardiomegaly. 3. Ill-defined veiling at the left costophrenic angle may represent the summation of shadows however, the possibility of small left pleural effusion cannot be excluded. Electronically signed by Zac Erazo 06-04-2024 01:[address] 06/03/24 23:51 EXAM: CT head/brain wo con CLINICAL HISTORY: neck pain, double vision, ataxia kf TECHNIQUE: Axial non-contrast CT scan of the brain was performed from the skull base to the high parietal region with coronal and sagittal reformats. One of the following dose reduction techniques were utilized for this exam: Automated exposure control, adjustment of the mA and/or kV according to patient size, use of iterative reconstruction. COMPARISON: with the prior study dated 06/13/2023. FINDINGS: Brain Parenchyma: Mild age-related cerebral involutional changes are noted. small right pontine hemiportion hypodense focus is seen, no edema of mass effect is noted. Tiny bilateral frotnal raúl ventricular hypodense foci related to small vessel disease. Normal attenuation of the cerebral hemispheres, cerebellum, and brainstem. No evidence of acute infarct, hemorrhage, or mass effect. No abnormal areas of hypo- or hyperattenuation. Ventricular System: Ventricles are slightly dilated. No evidence of hydrocephalus or ventricular enlargement. Subarachnoid Spaces: wide sulci and cisterns. No evidence of subarachnoid hemorrhage or extra-axial fluid collections. Cerebellum and Brainstem: Normal size and signal. No masses, lesions, or areas of abnormal signal. Orbits: Normal appearance of the globes, optic nerves, and extraocular muscles. No evidence of orbital masses or abnormal signals. Sinuses: Clear paranasal sinuses. No evidence of sinusitis or mucosal thickening. Mastoid Air Cells: Clear mastoid air cells. No evidence of mastoiditis. Skull and Meninges: Normal skull morphology. IMPRESSION: 1. Mild age-related cerebral involutional changes. (Stable). 2. Newly noted small hypodense focus in the right pontine hemiportion, likely low-grade ischemia of small vessel disease. 3. Still noted Tiny bilateral frontal raúl-ventricular hyperdense foci related to small vessel disease. 4. No obvious recent ischaemic or hemorrhagic foci, further MRI assessment is advised if clinically warranted. Electronically signed by Zac Erazo 06-04-2024 01:32 AM Head CTA 06/03/24 23:51 EXAM: CT angio head w con CLINICAL HISTORY: neck pain, double vision, ataxia injected with 119 cc''s optiray 320 kf TECHNIQUE: CT angiography of the head was performed following the intravenous administration of 119ml of Opitray-320mg/ml iodinated contrast material. Contiguous axial images were obtained from the base of the skull to the vertex. Coronal and sagittal reformatted images were also reviewed. One of these 3D techniques was utilized: Maximum Intensity Pixel (MIP), 3D Reconstructed Images, Volume Rendered Images, Surface Shaded Rendering. One of these 3D techniques was utilized: Maximum Intensity Pixel (MIP), 3D Reconstructed Images, Volume Rendered Images, Surface Shaded Rendering. COMPARISON: Comparison is made with the prior CT angiography dated 08/23/2018. FINDINGS: The right ICA cavernous postion shows several small calcified atheromatous plaques with no signifincat stenosis reaching about 30 %. The left ICA cavernous postion shows several small calcified atheromatous plaques with no signifincat stenosis reaching about 55%. Intracranial Arteries: The intracranial arteries, including the anterior cerebral arteries, middle cerebral arteries, posterior cerebral arteries, basilar artery, and vertebral arteries, are all patent without evidence of significant stenosis, aneurysm, or dissection. There is no evidence of vascular malformations. [place]: The [place] is intact with no anatomical variations or abnormalities noted. All segments are well-visualized and normal in appearance. Venous System: The visualized portions of the venous system, including the dural venous sinuses, are patent with no evidence of thrombosis. Brain Parenchyma: The brain parenchyma shows no evidence of acute infarction, hemorrhage, or mass effect. The ventricles and sulci are normal in size and configuration. Bones: The bony structures of the skull are intact without evidence of fracture or destructive lesions. Soft Tissues: The visualized soft tissues of the head are unremarkable. Additional Findings: No other significant findings are noted. IMPRESSION: OBX.[id number].5.1.11. Evidence of bilateral ICA cavernous portions, calcified atheromatous plaques with stenosis reaching about 30% in the right side /OBX.5.1.1OBX.5.1.2 55 % in the left side./OBX.5.1.2/OBX.5.[address] angiography head is unremarkable. Electronically signed by Zac Erazo 06-04-2024 02:27 AM Neck CTA 06/03/24 23:51 EXAM: CT angio neck with con CLINICAL HISTORY: neck pain, double vision, ataxia injected with 119cc''s optiray 320 kf TECHNIQUE: CT angiography of the neck was performed following the intravenous administration of 119ml of Opitray-300mg/ml of iodinated contrast material. Axial images were obtained from the aortic arch to the vertex. Coronal and sagittal reformatted images were also reviewed. One of the following dose reduction techniques was utilized for this exam. Automated exposure control, adjustment of the mA and/or kV according to patient size, and use of iterative reconstruction. One of these 3D techniques was utilized: Maximum Intensity Pixel (MIP), 3D Reconstructed Images, Volume Rendered Images, Surface Shaded Rendering. COMPARISON: With the prior study dated 05/21/2022. FINDINGS: OBX.5.1OBX.5.1.1The right carotid bulb shows concentric atherosclerotic calcified plaque is seen causin about 54 % stenosis./OBX.5.1.1OBX.5.1.2 is see extending to the proximal segment of the right ICA causing 35 % stenosis of its lumen./OBX.5.1.2/OBX.5.1 The left carotic bubl shows another concentric stenosis by calcified circumferential atheromatous plaque causing about 45 % stenosis with a small extension to the left ICA proximal segment causing 25 % stenosis. Diffuse aortic atherosclerotic changes are noted. Carotid Arteries: The remaining portions of the common, internal, and external carotid arteries are patent bilaterally with no evidence of significant stenosis, aneurysm, or dissection. There is no evidence of atherosclerotic plaque causing significant luminal narrowing. Vertebral Arteries: The vertebral arteries are patent bilaterally with no evidence of significant stenosis, aneurysm, or dissection. Thyroid Gland: The thyroid gland is normal in size and appearance with no focal lesions. Lymph Nodes: There is no evidence of significant lymphadenopathy in the neck. Soft Tissues: The soft tissues of the neck are unremarkable with no evidence of masses or abnormal collections. Additional Findings: No other significant findings are noted. IMPRESSION: Evidence of Bilateral carotid bulbs and proximal ICA calcified atheromatous plaques with stenosis criteria as described above(54% right bulb, 35% right ICA, 45% left carotid bulb and 25 % left ICA ). Electronically signed by Zac Erazo 06-04-2024 02:33 AM Brain MRI 06/04/24 03:34 EXAM: MR brain wo con CLINICAL HISTORY: TECHNIQUE: An MRI of the brain was performed without intravenous contrast with the obtained multiplanar sequences. COMPARISON: with the prior CT study 06/03/2024. FINDINGS: Brain Parenchyma: Stable mild age-related cerebral involutional changes. Small pontine fciof signals alteration eliciting indistinct T1, anna bright T2, and FLATR WIs signals, no diffusion restriction in DWIs denoting chronic low-grade ischemic changes of small vessel disease. Still noted tiny sheet in the deep periventricular white matter related to small vessel disease. Still need dilated virchow belcher spaces. No evidence of acute infarction or hemorrhage. Normal galdamez-white matter differentiation. No mass lesions or focal cortical abnormalities were identified. Ventricles and Sulci: Mild dilatation of the lateral ventricles, third ventricle, and fourth ventricle. No evidence of hydrocephalus or ventriculomegaly. Sylvian fissures, sulci, and cisterns are within normal limits. Posterior Fossa: The cerebellum and brainstem appear normal without evidence of mass lesions or signal abnormalities. Cranial Nerves: Normal course and appearance of cranial nerves identified. Vessels: No evidence of vascular malformations or aneurysms. Intracranial arteries and veins appear normal without evidence of stenosis or occlusion. Orbits and Skull Base: Orbits and skull base structures are normal without evidence of abnormalities. IMPRESSION: 1. No recent ischemia, no hemorrhagic insult appreciated. 2. Still noted mild age-related cerebral involutional changes. 3. Still noted small pontine low-grade chronic ischemic foci related to small vessel disease. Electronically signed by Zac Erazo 06-04-2024 07:15 AM Hospital Course (1) Abnormal CT scan of head: (2) Carotid stenosis, bilateral: (3) Diplopia: (4) Imbalance: (5) Alcohol intoxication: (6) Cervical (neck) region somatic dysfunction: (7) Cervical disc disorder at C5-C6 level with myelopathy: (8) Paroxysmal atrial fibrillation: (9) Hypertension: (10) Fatty infiltration of liver: (11) Prostate hyperplasia with urinary obstruction: Plan Alcohol intoxication Alcohol level 372.7 on presentation Long discussion with patient regarding development potentially of Wernicke Korsakoff's AWSS protocol Gabapentin load to help with seizure prevention, but may also help significant cervical neck discomfort Oral thiamine and Folate supplementation Referrals placed to inpatient drug and alcohol rehab facilities as 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 Tiny bilateral frontal periventricular hyperdense foci/small vessel disease. - CTA of head bilateral ICA cavernous stenosis, 30% on the right side and 55% on the left side - CTA of neck, SHANNON stenosis 35%, LICA stenosis 45% - No focal neurologic deficits noted on examination - Neurology consult: Small age indeterminate hypodensity in right pontine region, very faint and likely chronic, brain MRI negative for acute stroke, previous neck MRI 05/09 also reviewed by neurology, no loss of bladder/bowel function, incontinence - high risk for alcoholic dementia and Wernicke encephalopathy - OT/PT consults - Plan for inpatient rehabilitation --- PT/OT advising return to home when medically stable, no physical rehabilitation indication. Cervical spine stenosis multilevel C5-C6 with myelopathy Multilevel cervical degenerative disc disease and central spinal and foraminal stenosis Neck MRI 05/09 reviewed by neurology Continue duloxetine -- Unlikely contribution to current picture BPH with LUTS/urethral strictures status post surgery- Continue tamsulosin Disposition: Transition to Treatment facility pending referrals/bed availability. Total Time Total Time Spent Total Time Spent (In Minutes): <30 Discharge Plan Discharge Items Patient Disposition: Drug & Alcohol Rehab Reason For Visit: CONFUSION, DIPLOPIA, ALCOHOL INTOXICATION Discharge Diagnosis: Alcohol Overdose Activity: Per Instructions section Non-emergency contact: Primary Care Provider Call non-emergency contact if: you have any medication questions and your symptoms worsen Follow-up/Referrals: Vasquez Wilburn III, CRNP [Primary Care Provider] - Diet: Regular Addtl Attending Provider Instructions: For rehabilitation facility: Alcohol intoxication Alcohol level 372.7 on presentation Long discussion with patient regarding development potentially of Wernicke Korsakoff's AWSS protocol Gabapentin load to help with seizure prevention, but may also help significant cervical neck discomfort Oral thiamine and Folate supplementation Referrals placed to inpatient drug and alcohol rehab facilities as 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 Tiny bilateral frontal periventricular hyperdense foci/small vessel disease. - CTA of head bilateral ICA cavernous stenosis, 30% on the right side and 55% on the left side - CTA of neck, SHANNON stenosis 35%, LICA stenosis 45% - No focal neurologic deficits noted on examination - Neurology consult: Small age indeterminate hypodensity in right pontine region, very faint and likely chronic, brain MRI negative for acute stroke, previous neck MRI 05/09 also reviewed by neurology, no loss of bladder/bowel function, incontinence - high risk for alcoholic dementia and Wernicke encephalopathy - OT/PT consults - Plan for inpatient rehabilitation --- PT/OT advising return to home when medically stable after [facility] stay, no physical rehabilitation indication. Cervical spine stenosis multilevel C5-C6 with myelopathy Multilevel cervical degenerative disc disease and central spinal and foraminal stenosis Neck MRI 05/09 reviewed by neurology Continue duloxetine -- Unlikely contribution to current picture BPH with LUTS/urethral strictures status post surgery- Continue tamsulosin Disposition: Transition to Treatment facility 06/07 Pending Studies at Discharge: No Stand-Alone Forms: My [facility] Skilled Items Patient informed of condition?: Yes DNR: No Discharge Level of Care: Acute rehab Communicable Disease: No Discharge Prognosis: Stable Lines: None Urinary Catheter: No Medications and DC Order Prescriptions: New cyanocobalamin (vitamin B-12) 1,000 mcg tablet 1,000 mcg PO DAILY Qty: 30 3RF folic acid 1 mg Tablet 1 mg PO QAM 30 Days Qty: 30 0RF thiamine HCl (vitamin B1) 100 mg Tablet 100 mg PO QAM 30 Days Qty: 30 0RF Continued tamsulosin 0.4 mg capsule 0.4 mg PO DAILY Qty: 90 1RF sildenafil 100 mg tablet 100 mg PO DAILY PRN (Reason: sexual activity) Qty: 8 5RF Rx Instructions: Take 1/2 to 1 tablet 1 hour before intercourse metoprolol succinate 50 mg tablet extended release 24 hr See Rx Instructions .ROUTE .COMPLEX Qty: 90 0RF Dose Instruction: Take 1 tablet by mouth once daily Rx Instructions: Take 1 tablet by mouth once daily duloxetine [Cymbalta] 30 mg capsule,delayed release(DR/EC) 30 mg PO DAILY Qty: 90 1RF biotin 1 mg Tablet 1 mg PO DAILY Discharge Orders: Discharge Order (Routine); Ordered 06/07/24 Ordered By: Nohelia Prieto Admission Data Admit Date/Time: 06/05/24 18:42 Attending Provider: Octavio Payton Admit Provider: Octavio Payton Primary Care Provider: Vasquez Wilburn III Other Providers: Jesse Polanco; Amanuel Carr Other Interventions: Discharge Summary Assessment (RN) Last Done: 06/07/24 09:11 Supervising Physician Co-Signing Physician Notes I personally examined the patient and verified all [place] points of history and exam, discussed case, and agree with decision making with Dr Salcedo for rehab today - [facility]. vitals noted nad heent nc at mmm breathing unlabored no accessory muscles good effort skin no rashes no pallor or icterus Ambulatory dysfunction/balance changes in the setting of progressive weakness, confusion, diplopia - after extensive w/u really almost entirely due to EtOH intoxication/abuse and some deconditioning. - PT/OT input appreciated/noted. B12 low - replace. doing better can do outpt PT Alcohol intoxication with concern for withdrawal, doing better - drinks due to depression. 06/05 extensive discussion on other means of stress management/lifestyle, reiterated this discussion today. for rehab today Else see resident documentation as noted. Resident Activity Tracking Resident Involvement: Resident Care Provided Care Provided: Adult [facility]
[2024-06-07] MEDS: FOLIC ACID 1 MG TAB PO SCH (08:08)
[2024-06-07] MEDS: THIAMINE HCL 100 MG TAB PO SCH (08:09)
[2024-06-07] MEDS ORDERED: GABAPENTIN 600 MG TAB PO SCH (18:00)
--- NOTE | 2024-06-07 18:03 | Billing Data ---
Date of Service June 07, 2024 Coding Level of Care Code 22952 IN/OBS DISCH 30 MIN/LESS
--- NOTE | 2024-06-07 18:04 | Billing Data ---
Date of Service June 07, 2024 Coding Level of Care Code 03925 IN/OBS DISCH 30 MIN/LESS
== END 2024-06-07 10:01 | disposition alcohol treatment (31) | DRG 897 ==
LOC: 2S 23:24 → ED 23:24 → SUATTDRO 06-04 03:53 → 2S 06-04 04:25 → 3N 06-05 20:12